=== PATIENT | female | born 1985 | race Caucasian/White ===

== ENCOUNTER 2017-03-05 07:51 | Observation (INO) | payer MEDICAID, OTHER ==
--- NOTE | 2017-03-05 08:47 | EDM.PDOC ---
ED HPI GI/ABDOMINAL - General Chief Complaint: Abdominal Pain Stated Complaint: R SIDE ABDOMINAL PAIN; 15 WKS PG Time Seen by Provider: 03/05/17 08:38 Source of Information: Reports: Patient History Limitations: Reports: No limitations - History of Present Illness INITIAL COMMENTS - FREE TEXT/NARRATIVE: 31-year-old female who is 4 para-3 presents to the ED with nausea and vomiting for 2-1/2 days. Last normal menstrual period was estimated to be around November 17. EDC has been set at August 25. This would make her about 15 weeks and 4 days . Development of right lower quadrant abdominal pain last night which has progressed in intensity and severity overnight. She is to walk extremely slowly any coughing or certain movements cause pain in the right lower quadrant. No vaginal bleeding. As he so far has been uneventful. She has had 3 previous sections. She's had gallbladder previously removed. Having 5-6 loose stools per day no blood. Emesis is bilious. No blood. Patient feels the right lower quadrant abdominal pain makes her vomit. Pain is constant with a colicky component. She does have a history of remote kidney stones. No genitourinary complaints other than frequency. Symptom Onset Date: 03/03/17 Timing/Duration: Reports: Day(s):, Gradual onset Location: RLQ Quality: Reports: ache, cramping, stabbing Severity: severe Improves with: Reports: other Context: Denies: sick contact, bad/questionable food, out of country travel, recent surgery, recent trauma (Nothing seems to make it better or worse.), lifting, activity/exercise, other Associated Symptoms (-Female): Reports: back pain, diarrhea, fever/chills ( Chills and fever), malaise, nausea/vomiting (Intractable with bilious emesis related to the right lower quadrant abdominal pain.). Denies: groin pain, shoulder pain, constipation (Right flank and low back discomfort radiating from the abdomen.), bloody stools (5-6 loose stools per day without blood.) Treatments RESIDENT PROGRAM SPECIALIST: Reports: Other (see below) (None.) - Related Data Allergies/ADRs: Allergies Allergy/AdvReac Type Severity Reaction Status Date / Time latex Allergy Rash Verified 03/05/17 08:01 tramadol AdvReac Seizure Verified 03/05/17 08:01 Home Meds: Home Meds levETIRAcetam [Keppra] 500 mg PO BID #60 tablet 09/15/15 [Rx] FLUoxetine [PROzac] 20 mg PO DAILY 09/03/16 [History] Cetirizine [ZyrTEC] 10 mg PO DAILY 03/05/17 [History] Past Medical History - Past Health History Medical/Surgical History: Denies Medical/Surgical History Cardiovascular History: Reports: Hypertension Other Cardiovascular History: Experiences PIH/Toxemia with each including highly elevated blood pressures, according to pt. 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 Was on Zoloft x 6 mos and the situation resolved with counseling and no longer having colic, which was causing pt to doubt herself a lot. Endocrine/Metabolic History: Reports: Obesity/BMI 30+ - Infectious Disease History Infectious Disease History: Reports: Human papilloma virus (HPV) - Past Surgical History HEENT Surgical History: Reports: Adenoidectomy, Tonsillectomy Other HEENT Surgeries/Procedures: adenoids GI Surgical History: Reports: Cholecystectomy Female Surgical History: Reports: section, LEEP Other Musculoskeletal Surgeries/Procedures:: Occasional numbness in L hand due, according to pt, to possible injury related to muscles/spinal nerve pinching. Social & Family History - Family History Family Medical History: Noncontributory Oncologic: Reports: Skin - Tobacco Use Smoking Status *Q: Former Smoker Years of Tobacco use: 3 Used Tobacco, but Quit: Yes Month Tobacco Last Used: March 2014 Second Hand Smoke Exposure: No - Caffeine Use Caffeine Use: Reports: Coffee - Alcohol Use Days Per Week of Alcohol Use: 2 Number of Drinks Per Day: 0 Total Drinks Per Week: 0 - Recreational Drug Use Recreational Drug Use: No - Living Situation & Occupation Living situation: Reports: single, with significant other (Fiance), with family (kids) Occupation: employed ([employer]) ED ROS GENERAL - Review of Systems Review Of Systems: See Below Constitutional: Reports: fever, chills, malaise, weakness, fatigue HEENT: Reports: No symptoms Respiratory: Reports: No Symptoms Cardiovascular: Reports: No symptoms Endocrine: Reports: no symptoms GI/Abdominal: Reports: Abdominal pain (See history of present illness), Diarrhea , Nausea, Vomiting. Denies: Bloody stool, Difficulty swallowing : Reports: frequency Musculoskeletal: Reports: back pain (Mild right back) Skin: Reports: no symptoms ( low back pain.) Neurological: Reports: Dizziness Psychiatric: Reports: No symptoms Hematologic/Lymphatic: Reports: no symptoms Immunologic: Reports: no symptoms ED EXAM, GI/ABD - Physical Exam Exam: See Below Exam Limited By: No limitations General Appearance: alert, WD/WN, moderate distress (In obvious discomfort.) Eyes: bilateral: normal appearance (No jaundice or pallor) Throat/Mouth: Other Head: atraumatic, normocephalic (Tongue remains moist.) Neck: normal inspection, supple, non-tender, full range of motion. No: lymphadenopathy (L), lymphadenopathy (R) Respiratory/Chest: no respiratory distress, lungs clear, normal breath sounds, no accessory muscle use, chest non-tender Cardiovascular: normal peripheral pulses, regular rate, rhythm, no edema, no gallop, no murmur GI/Abdominal: normal bowel sounds, tenderness (Tendernesses over McBurney's point with rebound), guarding, rebound ( and guarding evident.), McBurney's sign , other (Uterine fundus is barely palpable above the pubic symphysis.). No: rigidity, hepatomegaly, obturator sign, Rovsing's sign Back Exam: normal inspection, full range of motion. No: CVA tenderness (L), CVA tenderness (R) Extremities: normal inspection, normal range of motion, non-tender, no pedal edema, normal capillary refill Neurological: alert, oriented, CN II-XII intact, normal cognition, normal gait Psychiatric: normal affect Skin Exam: Warm, Dry, Intact, Normal color, No rash Course - Vital Signs Last Recorded V/S: Last Vital Signs Temp 36.8 C 03/05/17 07:58 Pulse 89 03/05/17 07:58 Resp 18 04/25/17 07:58 BP 139/91 H 03/05/17 07:58 Pulse Ox 97 03/05/17 07:58 - Orders/Labs/Meds Orders: Active Orders 24 hr Category Date Time Status Admission Status [Patient Status] [ADT] Routine ADT 03/05/17 13:21 Ordered Dextrose 5%-0.9% NaCl [Dextrose 5%-Normal Saline] 1,000 Med 03/05/17 09:00 Active ml IV ASDIRECTED Medication Orders Dextrose/Sodium Chloride (Dextrose 5%-Normal Saline) 1,000 mls @ 999 mls/hr IV ASDIRECTED KAILEE Last Admin: 03/05/17 08:58 Dose: 999 mls/hr Labs: Laboratory Tests 03/05/17 03/05/17 03/05/17 Range/Units 08:20 08:20 08:20 WBC 9.29 (3.98-10.04) K/mm3 RBC 4.56 (3.98-5.22) M/mm3 Hgb 13.5 (11.2-15.7) gm/L Hct 40.5 (34.1-44.9) % MCV 88.8 (79.4-94.8) fl MCH 29.6 (25.6-32.2) pg MCHC 33.3 (32.2-35.5) g/dl RDW Std Deviation 41.9 (36.4-46.3) fL Plt Count 239 (182-369) K/mm3 MPV 9.3 L (9.4-12.3) fl Neutrophils % (Manual) 83 H (40-60) % Band Neutrophils % 0 (0-10) % Lymphocytes % (Manual) 16 L (20-40) % Atypical Lymphs % 0 % Monocytes % (Manual) 0 L (2-10) % Eosinophils % (Manual) 0 L (0.7-5.8) % Basophils % (Manual) 1 (0.1-1.2) Platelet Estimate Adequate RBC Morph Comment Normal Sodium 137 (136-145) mEq/L Potassium 3.8 (3.5-5.1) mEq/L Chloride 104 (98-107) mEq/L Carbon Dioxide 20 L (21-32) mEq/L Anion Gap 16.8 H (5-15) BUN 8 (7-18) mg/dL Creatinine 0.7 (0.55-1.02) mg/dL Est Cr Clr Drug Dosing 92.10 mL/min Estimated GFR (MDRD) > 60 (>60) mL/min BUN/Creatinine Ratio 11.4 L (14-18) Glucose 92 (74-106) mg/dL Calcium 8.5 (8.5-10.1) mg/dL Total Bilirubin 0.3 (0.2-1.0) mg/dL AST 10 L (15-37) U/L ALT 14 (14-59) U/L Alkaline Phosphatase 60 (46-116) U/L C-Reactive Protein 1.6 H* (<1.0) mg/dL Total Protein 6.8 (6.4-8.2) g/dl Albumin 3.0 L (3.4-5.0) g/dl Globulin 3.8 gm/dL Albumin/Globulin Ratio 0.8 L (1-2) Lipase 165 (73-393) U/L Urine Color Yellow (Yellow) Urine Appearance Clear (Clear) Urine pH 6.5 (5.0-8.0) Ur Specific [place] 1.025 (1.005-1.030) Urine Protein Negative (Negative) Urine Glucose (UA) Negative (Negative) Urine Ketones Negative (Negative) Urine Occult Blood Negative (Negative) Urine Nitrite Negative (Negative) Urine Bilirubin Negative (Negative) Urine Urobilinogen 0.2 (0.2-1.0) Ur Leukocyte Esterase Negative (Negative) Urine RBC Not seen (0-5) /hpf Urine WBC Not seen (0-5) /hpf Ur Epithelial Cells Not seen (0-5) /hpf Urine Bacteria Not seen (FEW) /hpf Urine Mucus Not seen (FEW) /hpf Meds: Medications Generic Name Dose Route Start Last Admin Trade Name Freq PRN Reason Stop Dose Admin Dextrose/Sodium Chloride 1,000 mls @ 999 mls/hr 03/05/17 09:00 03/05/17 08:58 Dextrose 5%-Normal Saline IV 999 mls/hr ASDIRECTED KAILEE Administration Discontinued Medications Generic Name Dose Route Start Last Admin Trade Name Freq PRN Reason Stop Dose Admin Hydromorphone HCl 1 mg 03/05/17 08:49 03/05/17 09:00 Dilaudid IVPUSH 03/05/17 08:50 1 mg ONETIME ONE Administration Hydromorphone HCl 0.5 mg 03/05/17 12:13 03/05/17 12:19 Dilaudid IVPUSH 03/05/17 12:14 0.5 mg ONETIME ONE Administration Metoclopramide HCl 10 mg 03/05/17 08:49 03/05/17 08:59 Reglan IVPUSH 03/05/17 08:50 10 mg ONETIME ONE Administration - Radiology Interpretation Free Text/Narrative:: 31-year-old female presents the ED with reported nausea and vomiting x2 days. Developed right lower quadrant abdominal pain which is increased in intensity and severity over the last 12-14 hours. She believes the pain is what is making her vomit this morning. Emesis is bilious. She is also having loose stools 5 or 6 per day for the last 2 days and thought she just had the flu. Associated some fever and chills. She is clinically 15 weeks gestation. Pain is constant with a colicky component. She has a remote history of kidney stones. Plan OB ultrasound to be done as well as a look in the right lower quadrant for possible appendicitis. Labs to be done and urinalysis. IV will be D5 normal saline at open. Given Reglan 10 mg IV for nausea vomiting relief and Dilaudid 1 mg IV for pain relief. - Re-Assessments/Exams Free Text/Narrative Re-Assessment/Exam: 03/05/17 09:46 labs reveal a normal white count at 9.29 however there is a left shift of 83% neutrophils. Hemoglobin 13.5 hematocrit 40.5. Placed 139,000. Sodium 137 potassium 3.8. Anion gap mildly elevated at 16.8 CRP is 1.6 normal liver function and renal function . Urinalysis is normal. She is currently in the ultrasound suite. 03/05/17 12:11 abdominal ultrasound revealed the fetus estimated to be 15 weeks and 6 days. Single intrauterine fetus with normal amniotic fluid noted. Placenta is posterior with no findings of abruption. Images of the right lower quadrant did not show the appendix. No free fluid is identified in the pelvis. On reexamination she remains very tender in the right lower quadrant over McBurney's point. Particular area on deep palpation. No rebound tenderness appreciated. The abdominal wall is quite flaccid and is difficult to appreciate significant guarding certainly no rigidity. Pain had improved after initial treatment with narcotics and is now coming back. Spoke with Dr. Chang who is her normal SENIOR ORACLE DATABASE ADMINISTRATOR and he has asked that Gen. surgery on-call whom is Dr. Amrit Sneed see her in consultation to see what he thinks. Dr. Sneed is currently in surgery and will get back to us when he is out of the OR.Will repeat Dilaudid 0.5mg IV for pain relief. I'm not 100% convinced that she is an active appendicitis at this time. 03/05/17 13:23 computer was down for the last [address] Chang and Dr. Amrit Sneed had seen Ellen in consultation and decision has been made to take her to the operating room for a laparoscopic view of the appendix. She will therefore be admitted to the outpatient surgical unit. Departure - Departure Time of Disposition: 13:23 Disposition: DC/Tfer to Critical Access 66 Condition: fair Clinical Impression: Abdominal pain affecting Appendicitis Qualifiers: Appendicitis type: acute appendicitis Referrals: Patricia Monreal, [Primary Care Provider] - Forms: ED Department Discharge - My Orders Last 24 Hours: My Active Orders 03/05/17 09:00 Dextrose 5%-0.9% NaCl [Dextrose 5%-Normal Saline] 1,000 ml IV ASDIRECTED 03/05/17 13:21 Admission Status [Patient Status] [ADT] Routine - Assessment/Plan Last 24 Hours: My Active Orders 03/05/17 09:00 Dextrose 5%-0.9% NaCl [Dextrose 5%-Normal Saline] 1,000 ml IV ASDIRECTED 03/05/17 13:21 Admission Status [Patient Status] [ADT] Routine
[2017-03-05] MEDS ORDERED: HYDROmorphone 1 MG/ML Syringe IVPUSH ONE (08:49)
[2017-03-05] MEDS ORDERED: Metoclopramide 10 MG/2 ML SDV IVPUSH ONE (08:49)
[2017-03-05] MEDS ORDERED: Dextrose 5%-0.9% NaCl 1,000 ML IV SCH (09:00)
--- NOTE | 2017-03-05 11:16 | US ---
Limited obstetrical ultrasound: Multiple real-time images were obtained transabdominally. Images of the right lower quadrant were also obtained. Comparison: Previous obstetrical ultrasound of 01/08/17. Dates: LMP: LMP given as 11/14/16, WAYNE 08/21/17, gestational age 15 weeks 6 days Current ultrasound: WAYNE 08/22/17, gestational age 15 weeks 5 days Earlier ultrasound (01/08/17): WAYNE 08/26/17, gestational age 15 weeks 1 day Single intrauterine fetus is seen. Amniotic fluid volume is normal. Placenta is posterior with no findings of abruption. No findings of placenta previa are seen. Images of the right lower quadrant did not show the appendix. Maternal adnexa are unremarkable. Measurements: BPD: 3.18 cm - 16 weeks 0 days Head circumference: 11.49 cm - 15 weeks 4 days Abdominal circumference: 9.43 cm - 15 weeks 4 days Femur length: 1.95 cm - 15 weeks 6 days Estimated weight: 131 g (5 ounces), estimated weight at the 75th percentile for age by LMP Heart rate: 144 BPM Impression: 1. Single intrauterine fetus. Dates as noted above. 2. No complicating process seen by ultrasound at this time. 3. Images of the right lower quadrant did not show the appendix. Diagnostic code #1
[2017-03-05] MEDS ORDERED: HYDROmorphone 0.5 MG/0.5 ML Syringe IVPUSH ONE (12:13)
[2017-03-05] MEDS ORDERED: Sodium Chloride 0.9% 1,000 ML ONE (13:14)
[2017-03-05] MEDS ORDERED: Bupivacaine 0.5% 30 ML SDV ONE (13:15)
--- NOTE | 2017-03-05 13:36 | PCM.PREANE ---
Preanesthetic Assessment - Procedure Proposed Procedure: Laparscopic Appendectomy - Anesthesia/Transfusion/Family Hx Anesthesia History: Prior Anesthesia Without Reaction Family History of Anesthesia Reaction: No Transfusion History: No Prior Transfusion(s) Type of Transfusion Reactions: Reports: Unknown Intubation History: Unknown - Review of Systems General: Other (couging r/t allergies = environmental ) Pulmonary: No Symptoms Cardiovascular: No Symptoms Gastrointestinal: Decreased appetite, Nausea, Vomiting, Other (loose stools ) Neurological: Headache, Seizure Other: Reports: None - Physical Assessment NPO Status Date: 03/04/17 NPO Status Time: 20:00 Pulse: 81 O2 Sat by Pulse Oximetry: 97 Respiratory Rate: 18 Blood Pressure: 139/91 Temperature: 36.9 C Vital Signs: Last Vital Signs Temp 36.8 C 03/05/17 07:58 Pulse 89 03/05/17 07:58 Resp 18 03/05/17 07:58 BP 139/91 H 03/05/17 07:58 Pulse Ox 97 03/05/17 07:58 Height: 1.57 m Weight: 102.058 kg ASA Class: 3E Mental Status: Alert & Oriented x3 Airway Class: Mallampati = 1 Dentition: Reports: Normal Dentition Thyro-Mental Finger Breadths: 3 Mouth Opening Finger Breadths: 5 ROM/Head Extension: Full Lungs: Clear to auscultation, Normal respiratory effort Cardiovascular: Regular Rate, Regular Rhythm - Lab Values: Laboratory Last Values WBC 9.29 K/mm3 (3.98-10.04) 03/05/17 08:20 RBC 4.56 M/mm3 (3.98-5.22) 03/05/17 08:20 Hgb 13.5 gm/L (11.2-15.7) 03/05/17 08:20 Hct 40.5 % (34.1-44.9) 03/05/17 08:20 MCV 88.8 fl (79.4-94.8) 03/05/17 08:20 MCH 29.6 pg (25.6-32.2) 03/05/17 08:20 MCHC 33.3 g/dl (32.2-35.5) 03/05/17 08:20 RDW Std Deviation 41.9 fL (36.4-46.3) 03/05/17 08:20 Plt Count 239 K/mm3 (182-369) 03/05/17 08:20 MPV 9.3 fl (9.4-12.3) L 03/05/17 08:20 Neutrophils % (Manual) 83 % (40-60) H 03/05/17 08:20 Band Neutrophils % 0 % (0-10) 03/05/17 08:20 Lymphocytes % (Manual) 16 % (20-40) L 03/05/17 08:20 Atypical Lymphs % 0 % 03/05/17 08:20 Monocytes % (Manual) 0 % (2-10) L 03/05/17 08:20 Eosinophils % (Manual) 0 % (0.7-5.8) L 03/05/17 08:20 Basophils % (Manual) 1 (0.1-1.2) 03/05/17 08:20 Platelet Estimate Adequate 03/05/17 08:20 RBC Morph Comment Normal 03/05/17 08:20 Sodium 137 mEq/L (136-145) 03/05/17 08:20 Potassium 3.8 mEq/L (3.5-5.1) 03/05/17 08:20 Chloride 104 mEq/L (98-107) 03/05/17 08:20 Carbon Dioxide 20 mEq/L (21-32) L 03/05/17 08:20 Anion Gap 16.8 (5-15) H 03/05/17 08:20 BUN 8 mg/dL (7-18) 03/05/17 08:20 Creatinine 0.7 mg/dL (0.55-1.02) 03/05/17 08:20 Est Cr Clr Drug Dosing 92.10 mL/min 03/05/17 08:20 Estimated GFR (MDRD) > 60 mL/min (>60) 03/05/17 08:20 BUN/Creatinine Ratio 11.4 (14-18) L 03/05/17 08:20 Glucose 92 mg/dL (74-106) 03/05/17 08:20 Calcium 8.5 mg/dL (8.5-10.1) 03/05/17 08:20 Total Bilirubin 0.3 mg/dL (0.2-1.0) 03/05/17 08:20 AST 10 U/L (15-37) L 03/05/17 08:20 ALT 14 U/L (14-59) 03/05/17 08:20 Alkaline Phosphatase 60 U/L (46-116) 03/05/17 08:20 C-Reactive Protein 1.6 mg/dL (<1.0) H* 03/05/17 08:20 Total Protein 6.8 g/dl (6.4-8.2) 03/05/17 08:20 Albumin 3.0 g/dl (3.4-5.0) L 03/05/17 08:20 Globulin 3.8 gm/dL 03/05/17 08:20 Albumin/Globulin Ratio 0.8 (1-2) L 03/05/17 08:20 Lipase 165 U/L (73-393) 03/05/17 08:20 Urine Color Yellow (Yellow) 03/05/17 08:20 Urine Appearance Clear (Clear) 03/05/17 08:20 Urine pH 6.5 (5.0-8.0) 03/05/17 08:20 Ur Specific [place] 1.025 (1.005-1.030) 03/05/17 08:20 Urine Protein Negative (Negative) 03/05/17 08:20 Urine Glucose (UA) Negative (Negative) 03/05/17 08:20 Urine Ketones Negative (Negative) 03/05/17 08:20 Urine Occult Blood Negative (Negative) 03/05/17 08:20 Urine Nitrite Negative (Negative) 03/05/17 08:20 Urine Bilirubin Negative (Negative) 03/05/17 08:20 Urine Urobilinogen 0.2 (0.2-1.0) 03/05/17 08:20 Ur Leukocyte Esterase Negative (Negative) 03/05/17 08:20 Urine RBC Not seen /hpf (0-5) 03/05/17 08:20 Urine WBC Not seen /hpf (0-5) 03/05/17 08:20 Ur Epithelial Cells Not seen /hpf (0-5) 03/05/17 08:20 Urine Bacteria Not seen /hpf (FEW) 03/05/17 08:20 Urine Mucus Not seen /hpf (FEW) 03/05/17 08:20 - Allergies Allergies/Adverse Reactions: Allergies Allergy/AdvReac Type Severity Reaction Status Date / Time latex Allergy Rash Verified 03/05/17 08:01 tramadol AdvReac Seizure Verified 03/05/17 08:01 - Blood Blood Available: No - Anesthesia Plan Pre-Op Medication Ordered: Antacids (bicitra ) - Acknowledgements Anesthesia Type Planned: General Anesthesia Pt an Appropriate Candidate for the Planned Anesthesia: Yes Alternatives and Risks of Anesthesia Discussed w Pt/Guardian: Yes Pt/Guardian Understands and Agrees with Anesthesia Plan: Yes PreAnesthesia Questionnaire - Past Health History Medical/Surgical History: Denies Medical/Surgical History Cardiovascular History: Reports: Hypertension Other Cardiovascular History: Experiences PIH/Toxemia with each including highly elevated blood pressures, according to pt. Respiratory History: Reports: None, Other (see below) (seasonal allergy cough) Genitourinary History: Reports: Renal calculus LPN PER DIEM History: Reports: Other (see below) : 5 Para: 3 LMP (Approximate): (15 weks currently, counseled on risks and benefits of anesthesia during ) Other OB/BYN History: LEEP procedure; culposcopy; HPV removal of lesions, ovarian cysts Musculoskeletal History: Reports: Other (see below) Other Musculoskeletal History: foot and heel pain, muscle spasms, R plantar fascitis Neurological History: Reports: Headaches, chronic, Seizure Psychiatric History: Reports: Depression Other Psychiatric History: Pt states had pp depression following the of her second child. Was on Zoloft x 6 mos and the situation resolved with counseling and infant no longer having colic, which was causing pt to doubt herself a lot. Endocrine/Metabolic History: Reports: Obesity/BMI 30+ - Infectious Disease History Infectious Disease History: Reports: Human papilloma virus (HPV) - Past Surgical History HEENT Surgical History: Reports: Adenoidectomy, Tonsillectomy Other HEENT Surgeries/Procedures: adenoids GI Surgical History: Reports: Cholecystectomy Female Surgical History: Reports: section, LEEP Other Musculoskeletal Surgeries/Procedures:: Occasional numbness in L hand due, according to pt, to possible injury related to muscles/spinal nerve pinching. - SUBSTANCE USE Smoking Status *Q: Former Smoker Tobacco Use Within Last Twelve Months: Cigarettes Second Hand Smoke Exposure: No Days Per Week of Alcohol Use: 2 Number of Drinks Per Day: 0 Total Drinks Per Week: 0 Recreational Drug Use History: No - HOME MEDS Home Medications: Home Meds levETIRAcetam [Keppra] 500 mg PO BID #60 tablet 09/15/15 [Rx] FLUoxetine [PROzac] 20 mg PO DAILY 09/03/16 [History] Cetirizine [ZyrTEC] 10 mg PO DAILY 03/05/17 [History] - CURRENT (IN HOUSE) MEDS Current Meds: Current Medications Dextrose/Sodium Chloride (Dextrose 5%-Normal Saline) 1,000 mls @ 999 mls/hr IV ASDIRECTED KAILEE Last Admin: 03/05/17 08:58 Dose: 999 mls/hr Discontinued Medications Bupivacaine HCl (Marcaine 0.5%) Confirm Administered Dose 30 ml .ROUTE .STK-MED ONE Stop: 03/05/17 13:16 Hydromorphone HCl (Dilaudid) 1 mg IVPUSH ONETIME ONE Stop: 03/05/17 08:50 Last Admin: 03/05/17 09:00 Dose: 1 mg Hydromorphone HCl (Dilaudid) 0.5 mg IVPUSH ONETIME ONE Stop: 03/05/17 12:14 Last Admin: 03/05/17 12:19 Dose: 0.5 mg Metoclopramide HCl (Reglan) 10 mg IVPUSH ONETIME ONE Stop: 03/05/17 08:50 Last Admin: 03/05/17 08:59 Dose: 10 mg
[2017-03-05] MEDS ORDERED: Citric Acid/Sodium Citrate Solution 30 ML Cup PO STA (13:51)
[2017-03-05] MEDS ORDERED: Midazolam 1 MG/ML 2 ML SDV ONE (14:00)
[2017-03-05] MEDS ORDERED: Propofol 200 MG/20 ML SDV ONE ×2 (14:00→14:34)
[2017-03-05] MEDS ORDERED: fentaNYL 100 MCG/2 ML SDV ONE (14:01)
--- NOTE | 2017-03-05 14:10 | HP ---
DATE OF ADMISSION: 03/05/2017 HISTORY OF PRESENT ILLNESS: This is a 31-year-old 5 para 3 who has right lower quadrant pain that began on Saturday. It has been associated with nausea and vomiting. The pain increased in intensity and she came into the emergency room. Ultrasound showed a 15 week which was uncomplicated. She was not having any bleeding. No UTIs or dysuria. PAST MEDICAL HISTORY: Good health. CURRENT MEDICATIONS: Per medication reconciliation form. FAMILY HISTORY: Negative. SOCIAL HISTORY: No smoking. No drinking. No use of street drugs. ALLERGIES: None known. REVIEW OF SYSTEMS: No chest pain, shortness of breath, cough, hoarseness, wheezing, fainting, weakness, numbness, or convulsions. Does have some nausea and vomiting. PHYSICAL EXAMINATION: GENERAL: Reveals a slightly obese female. HEENT: Eyes; sclerae white. Extraocular muscle motion normal. Oral cavity, healthy mucous membrane with mouth and tongue. NECK: Supple. No nodes. No thyromegaly. Trachea midline. LUNGS: Clear. No rales, rhonchi, fremitus, or dullness. HEART: Tones regular rate. No S3, S4, jugular venous distention, or murmurs. ABDOMEN: Shows tenderness in the right lower quadrant. No guarding or rebound. No inguinal or umbilical hernias. EXTREMITIES: Upper extremities, no angulation deformities. NEUROLOGIC: No sensorineural deficit. Cranial nerves 3 through 12 intact. SKIN: Warm and dry. PSYCHIATRIC: Normal affect. LABORATORY DATA: Shows a white count of 9.2, hemoglobin is 13.5, and platelet count is normal. Electrolytes of CO2 is a little bit low at 20 and lipase 160. Urinalysis is negative. ASSESSMENT: Pain in the right lower quadrant with 15 weeks of . PLAN: Plan is to proceed with a laparoscopic appendectomy. Discussed this with the patient the risks and complications including the risk of loss of child. Understands and consents and will proceed immediately. MMMONTSERRAT /[id number]
[2017-03-05] MEDS ORDERED: HYDROmorphone 1 MG/ML Syringe ONE ×3 (14:26→15:34)
[2017-03-05] MEDS ORDERED: ceFAZolin 1 GM Vial ONE (14:27)
[2017-03-05] MEDS ORDERED: Phenylephrine/Normal Saline 100 MCG/ML 10 ML Syringe ONE (14:32)
--- NOTE | 2017-03-05 15:05 | PCM.OPNOTE ---
- General Post-Op/Procedure Note Date of Surgery/Procedure: 03/05/17 Operative Procedure(s): lap appy Pre Op Diagnosis: RLQ pain Post-Op Diagnosis: Same Anesthesia Technique: General ET tube Primary Surgeon: Alexander Sneed EBL in mLs: 0 Complications: None Condition: Good
[2017-03-05] MEDS ORDERED: Ondansetron 4 MG/2 ML SDV IVPUSH PRN ×2 (15:08→15:31)
[2017-03-05] MEDS ORDERED: Neostigmine Methylsulfate 1 MG/ML 5 ML Syringe ONE (15:09)
[2017-03-05] MEDS ORDERED: Ondansetron 4 MG/2 ML SDV ONE (15:09)
[2017-03-05] MEDS ORDERED: Metoclopramide 10 MG/2 ML SDV IVPUSH PRN (15:13)
[2017-03-05] MEDS ORDERED: Meperidine PF 50 MG/ML Syringe IVPUSH PRN (15:31)
[2017-03-05] MEDS ORDERED: fentaNYL 100 MCG/2 ML SDV IVPUSH PRN (15:31)
[2017-03-05] MEDS ORDERED: HYDROmorphone 0.5 MG/0.5 ML Syringe IVPUSH PRN (15:31)
[2017-03-05] MEDS ORDERED: diphenhydrAMINE 50 MG/ML SDV IVPUSH PRN (15:31)
--- NOTE | 2017-03-05 15:31 | PCM.POSTAN ---
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
[2017-03-05] MEDS ORDERED: Ketamine 500 mg/10 ML MDV ONE (15:34)
[2017-03-05] MEDS: HYDROmorphone 0.5 MG/0.5 ML Syringe IVPUSH PRN ×2 (17:43→22:19)
[2017-03-05] MEDS: Acetaminophen/HYDROcodone 325-10 MG Tab PO PRN (20:30)
[2017-03-05] MEDS: levETIRAcetam 500 MG Tab PO SCH (21:05)
[2017-03-06] MEDS: HYDROmorphone 0.5 MG/0.5 ML Syringe IVPUSH PRN (01:57)
[2017-03-06] MEDS: Acetaminophen/HYDROcodone 325-10 MG Tab PO PRN (04:38)
--- NOTE | 2017-03-06 07:28 | PCM48HPAN ---
Post Anesthesia Note - EVALUATION WITHIN 48HRS OF ANESTHETIC Vital Signs in Normal Range: Yes Patient Participated in Evaluation: Yes Respiratory Function Stable: Yes Airway Patent: Yes Cardiovascular Function Stable: Yes Hydration Status Stable: Yes Pain Control Satisfactory: Yes (states she is just a little sore) Nausea and Vomiting Control Satisfactory: Yes Mental Status Recovered: Yes
--- NOTE | 2017-03-06 08:54 | OR ---
DATE OF OPERATION: 03/04/2017 SURGEON: Alexander Sneed MD PREOPERATIVE DIAGNOSIS: Right lower quadrant pain. POSTOPERATIVE DIAGNOSIS: Right lower quadrant pain. OPERATION PERFORMED: Laparoscopic appendectomy. ANESTHESIA: Procedure done under general anesthetic. ESTIMATED BLOOD LOSS: 0 mL. FINDINGS: Normal-appearing appendix and ileum for the first 2 feet did not show any pathology. The patient had a gravid uterus of 15 weeks. Ovary and tubes were unremarkable. There was omentum adherent to the previous . DESCRIPTION OF PROCEDURE: The patient was taken to the operating room, placed in a supine position, connected to monitoring equipment, given a general anesthetic, antibiotics were given, and SCDs were placed. The abdomen was prepped with DuraPrep and draped off in a sterile fashion. Incision was made above the umbilicus and carried down by sharp dissection to the fascia. This was opened and abdominal cavity entered. Eula trocar placed and secured with stay sutures. Pneumoperitoneum established. A 5-mm 30-degree camera was inserted and abdominal cavity scanned showing the appendix in the right upper quadrant. The patient was placed in reverse Trendelenburg with leftward tilt. A window in the mesoappendix was made. This was facilitated by putting a 5-mm port in the right upper quadrant and right lower quadrant. Endo ligator was placed into the abdomen and appendix was from its attachments to the cecum and another 2 firings of the Endo ligator the mesoappendix. This was placed in the endobag and removed from the abdominal cavity. Camera and pneumoperitoneum were re- established showing excellent hemostasis. No other pathology. Pneumoperitoneum was removed along with the ports. The fascia of the subumbilical port was closed with a running 0 Vicryl suture. The skin of each port closed with subdermal 4-0 Dexon suture and each port was anesthetized with 0.5% Marcaine. Steri-Strips and sterile dressing placed. The patient tolerated the procedure and sent to recovery room in a stable condition. Because of her , she will be observed overnight. MMODAL /[id number]
[2017-03-06] MEDS ORDERED: FLUoxetine 20 MG Cap PO SCH ×2 (09:00→21:00)
[2017-03-06] MEDS ORDERED: Acetaminophen/HYDROcodone 325-10 MG Tab PO PRN (09:17)
[2017-03-06] MEDS: levETIRAcetam 500 MG Tab PO SCH (09:35)
[2017-03-06 09:53] VITALS: BP 116/65
--- NOTE | 2017-03-06 12:15 | PCM.SURGPN ---
- General Info Date of Service: 03/06/17 - Patient Data Vitals - most recent: Last Vital Signs Temp 98.1 F 03/06/17 09:30 Pulse 64 03/06/17 09:38 Resp 15 03/06/17 09:30 BP 116/65 03/06/17 09:38 Pulse Ox 94 L 03/06/17 09:38 Weight - most recent: 102.058 kg I&O - last 24 hours: Intake & Output 03/05/17 03/06/17 03/06/17 23:59 07:59 15:59 Intake Total 220 Balance 220 Med Orders - Current: Current Medications Hydrocodone Bitart/Acetaminophen ([place] 325-10 Mg) 1 tab PO Q4H PRN PRN Reason: Pain Last Admin: 03/06/17 09:35 Dose: 1 tab Fluoxetine HCl (Prozac) 20 mg PO DAILY [facility] Hydromorphone HCl (Dilaudid) 0.5 mg IVPUSH Q2H PRN PRN Reason: Pain Last Admin: 03/06/17 01:57 Dose: 0.5 mg Dextrose/Sodium Chloride (Dextrose 5%-Normal Saline) 1,000 mls @ 999 mls/hr IV ASDIRECTED KAILEE Last Admin: 03/05/17 08:58 Dose: 999 mls/hr Levetiracetam (Keppra) 500 mg PO BID [facility] Last Admin: 03/06/17 09:35 Dose: 500 mg Meperidine HCl (Demerol) 12.5 mg IVPUSH ONETIME PRN PRN Reason: shivering Stop: 03/06/17 15:32 Metoclopramide HCl (Reglan) 10 mg IVPUSH Q6H PRN PRN Reason: Nausea Discontinued Medications Hydrocodone Bitart/Acetaminophen ([place] 325-10 Mg) 1 tab PO Q6H PRN PRN Reason: Pain Last Admin: 03/06/17 04:38 Dose: 1 tab Bupivacaine HCl (Marcaine 0.5%) Confirm Administered Dose 30 ml .ROUTE .STK-MED ONE Stop: 03/05/17 13:16 Last Admin: 03/05/17 14:23 Dose: 9 ml Cefazolin Sodium (Ancef) Confirm Administered Dose 2 gm .ROUTE .STK-MED ONE Stop: 03/05/17 14:28 Citric Acid/Sodium Citrate (Bicitra Solution) 30 ml PO ONETIME STA Stop: 03/05/17 13:52 Last Admin: 03/05/17 13:59 Dose: 30 ml Diphenhydramine HCl (Benadryl) 25 mg IVPUSH Q6H PRN PRN Reason: pruritis Stop: 03/05/17 18:00 Fentanyl (Sublimaze) Confirm Administered Dose 100 mcg .ROUTE .STK-MED ONE Stop: 03/05/17 14:02 Fentanyl (Sublimaze) 50 mcg IVPUSH Q5M PRN PRN Reason: Pain Stop: 03/05/17 18:00 Last Admin: 03/05/17 15:46 Dose: 50 mcg Glycopyrrolate () Confirm Administered Dose 1 mg .ROUTE .STK-MED ONE Stop: 03/05/17 15:10 Hydromorphone HCl (Dilaudid) 1 mg IVPUSH ONETIME ONE Stop: 03/05/17 08:50 Last Admin: 03/05/17 09:00 Dose: 1 mg Hydromorphone HCl (Dilaudid) 0.5 mg IVPUSH ONETIME ONE Stop: 03/05/17 12:14 Last Admin: 03/05/17 12:19 Dose: 0.5 mg Hydromorphone HCl (Dilaudid) Confirm Administered Dose 1 mg .ROUTE .STK-MED ONE Stop: 03/05/17 14:27 Hydromorphone HCl (Dilaudid) Confirm Administered Dose 1 mg .ROUTE .STK-MED ONE Stop: 03/05/17 15:21 Hydromorphone HCl (Dilaudid) Confirm Administered Dose 1 mg .ROUTE .STK-MED ONE Stop: 03/05/17 15:35 Hydromorphone HCl (Dilaudid) 0.5 mg IVPUSH Q15M PRN PRN Reason: severe pain Stop: 03/05/17 15:47 Last Admin: 03/05/17 15:47 Dose: 0.5 mg Ketamine HCl (Ketalar) Confirm Administered Dose 500 mg .ROUTE .STK-MED ONE Stop: 03/05/17 15:35 Metoclopramide HCl (Reglan) 10 mg IVPUSH ONETIME ONE Stop: 03/05/17 08:50 Last Admin: 03/05/17 08:59 Dose: 10 mg Midazolam HCl (Versed 1 Mg/Ml) Confirm Administered Dose 2 mg .ROUTE .STK-MED ONE Stop: 03/05/17 14:01 Neostigmine Methylsulfate (Neostigmine) Confirm Administered Dose 5 mg .ROUTE .STK-MED ONE Stop: 03/05/17 15:10 Ondansetron HCl (Zofran) Confirm Administered Dose 4 mg .ROUTE .STK-MED ONE Stop: 03/05/17 15:10 Ondansetron HCl (Zofran) 4 mg IVPUSH Q8H PRN PRN Reason: Nausea Ondansetron HCl (Zofran) 4 mg IVPUSH ONETIME PRN PRN Reason: Nausea/Vomiting Stop: 03/05/17 18:00 Phenylephrine HCl (Phenylephrine In Ns 100 Mcg/Ml) Confirm Administered Dose 1 mg .ROUTE .STK-MED ONE Stop: 03/05/17 14:33 Propofol (Diprivan 20 Ml) Confirm Administered Dose 200 mg .ROUTE .STK-MED ONE Stop: 03/05/17 14:01 Propofol (Diprivan 20 Ml) Confirm Administered Dose 200 mg .ROUTE .STK-MED ONE Stop: 03/05/17 14:35 - Problem List Review Problem List Initiated/Reviewed/Updated: Yes - My Orders Last 24 Hours: Active Orders 24 hr Category Date Time Status Ambulate [RC] PER UNIT ROUTINE Care 03/05/17 15:06 Active Notify Provider [RC] ASDIRECTED Care 03/05/17 15:31 Active Regular Diet [DIET] Diet 03/06/17 Lunch Active Acetaminophen/HYDROcodone [[place] 325-10 MG] Med 03/06/17 09:17 Active 1 tab PO Q4H PRN FLUoxetine [PROzac] Med 03/06/17 09:00 Active 20 mg PO DAILY HYDROmorphone [Dilaudid] Med 03/05/17 15:07 Active 0.5 mg IVPUSH Q2H PRN Meperidine [Demerol] Med 03/05/17 15:31 Active 12.5 mg IVPUSH ONETIME PRN Metoclopramide [Reglan] Med 03/05/17 15:13 Active 10 mg IVPUSH Q6H PRN levETIRAcetam [Keppra] Med 03/05/17 21:00 Active 500 mg PO BID Medication Orders Hydrocodone Bitart/Acetaminophen ([place] 325-10 Mg) 1 tab PO Q4H PRN PRN Reason: Pain Last Admin: 03/06/17 09:35 Dose: 1 tab Fluoxetine HCl (Prozac) 20 mg PO DAILY [facility] Hydromorphone HCl (Dilaudid) 0.5 mg IVPUSH Q2H PRN PRN Reason: Pain Last Admin: 03/06/17 01:57 Dose: 0.5 mg Admin: 03/05/17 22:19 Dose: 0.5 mg Admin: 03/05/17 17:43 Dose: 0.5 mg Dextrose/Sodium Chloride (Dextrose 5%-Normal Saline) 1,000 mls @ 999 mls/hr IV ASDIRECTED KAILEE Last Admin: 03/05/17 08:58 Dose: 999 mls/hr Levetiracetam (Keppra) 500 mg PO BID [facility] Last Admin: 03/06/17 09:35 Dose: 500 mg Admin: 03/05/17 21:05 Dose: 500 mg Meperidine HCl (Demerol) 12.5 mg IVPUSH ONETIME PRN PRN Reason: shivering Stop: 03/06/17 15:32 Metoclopramide HCl (Reglan) 10 mg IVPUSH Q6H PRN PRN Reason: Nausea - Plan Plan (Free Text/Narrative):: discharge dictated FLAVIA
--- NOTE | 2017-03-06 13:54 | DISCH ---
ADMISSION DATE: 03/05/2017 DISCHARGE DATE: 03/06/2017 HISTORY: This is a 31-year-old who came in through the emergency room with pain in the right lower quadrant that began on Saturday. It persisted and was associated with poor appetite. She was seen in the emergency room. Ultrasound showed a 15-week . She was not having any bleeding or UTI. Director Of Individual Giving evaluated her and asked for a surgical consultation. PHYSICAL EXAMINATION: GENERAL: At the time of admission revealed an alert and cooperative female, slightly obese. EYES, EARS, NOSE, AND THROAT: Unremarkable. NECK: Supple. LUNGS: Clear. HEART: Tones regular rate. ABDOMEN: Showed tenderness in the right lower quadrant. HOSPITAL COURSE: The patient was judged to have a risk for appendicitis because of 15-week and pain in the right lower quadrant. She was brought to the operating room, where laparoscopic appendectomy was performed. The appendix appeared normal. The patient's postoperative course was uneventful, and she did have some incisional tenderness, which was resolved with pain medication. The pain in the right lower quadrant disappeared. She felt improved, and she was discharged on a regular diet, follow up with OB appointment, and discharge condition improved. FINAL DIAGNOSIS: Right lower quadrant pain status post laparoscopic appendectomy. Pathology pending. ACTIVITY: No heavy lifting, pushing, shoving, or pulling. DIET: Regular diet. DISCHARGE MEDICATIONS: As before and previous medication reconciliation form. In addition to that, Vicodin 5/325 one p.o. q.i.d. p.r.n. pain. FOLLOW-UP: With me in 1 week. CONDITION ON DISCHARGE: Improved. MMODAL /[id number]
[2017-03-07] MEDS ORDERED: Loratadine 10 MG Tab PO SCH (09:00)
== END 2017-03-06 12:30 | disposition home or self-care (01) ==
LOC: JD.ED 07:51 → JD.SDS 13:22 → JD.OB 13:22 → JD.SDS 15:04 → JD.OB 15:05 → UNDOADMOB 15:05
PROVIDERS: ADMIT Surgery; ATTEND Surgery
DX: O21.9 Vomiting of pregnancy, unspecified (principal); Z3A.15 15 weeks gestation of pregnancy; R10.31 Right lower quadrant pain
CPT/HCPCS: 36415; 44970; 76815; 80053; 81001; 83690; 85025; 86140; 88304; 96361; 96374; 96375; 96376; 99285; A9270; G0378; J0690; J1170; J2405; J2710; J2765; J3010; J7042; 00840; J2250; J2704

== ENCOUNTER 2017-03-23 13:36 | Emergency (ER) | payer OTHER ==
[2017-03-23 13:54] VITALS: BP 126/95
--- NOTE | 2017-03-23 14:15 | EDM.PDOC ---
ED HPI GENERAL MEDICAL PROBLEM - General Chief Complaint: WASHERY BOSS Problem Stated Complaint: 18 WEEKS PREG/ VOMITING Time Seen by Provider: 03/23/17 14:04 Source of Information: Reports: Patient, RN Notes Reviewed - History of Present Illness INITIAL COMMENTS - FREE TEXT/NARRATIVE: 31-year-old female comes in with nausea vomiting and diarrhea. She is about 18 weeks . has been going okay for her. He has no abdominal pain , pelvic pain bleeding or spotting. She states her symptoms of vomiting and diarrhea did start at about the same time yesterday. She continues to have nausea, vomiting if she tries to eat. She continues to have frequent watery diarrhea. Her mouth is starting to fill dry. She feels mildly dizzy when standing. No chest or shoulder discomfort. No difficulty breathing. - Related Data Allergies Allergy/AdvReac Type Severity Reaction Status Date / Time latex Allergy Rash Verified 03/23/17 13:50 tramadol AdvReac Seizure Verified 03/23/17 13:50 Home Meds: Home Meds levETIRAcetam [Keppra] 500 mg PO BID #60 tablet 09/15/15 [Rx] Cetirizine [ZyrTEC] 10 mg PO DAILY 03/05/17 [History] FLUoxetine HCl [Fluoxetine HCl] 40 mg PO BEDTIME 03/05/17 [History] Past Medical History - Past Health History Medical/Surgical History: Denies Medical/Surgical History Cardiovascular History: Reports: Hypertension Other Cardiovascular History: Experiences PIH/Toxemia with each including highly elevated blood pressures, according to pt. Respiratory History: Reports: None Genitourinary History: Reports: Renal Calculus WASHERY BOSS History: Reports: , Other (See Below) Other OB/BYN History: LEEP procedure; culposcopy; HPV removal of lesions, ovarian cysts Musculoskeletal History: Reports: Other (See Below) Other Musculoskeletal History: foot and heel pain, muscle spasms, R plantar fascitis Neurological History: Reports: Headaches, Chronic, Seizure Psychiatric History: Reports: Depression Other Psychiatric History: Pt states had pp depression following the of her second child. Was on Zoloft x 6 mos and the situation resolved with counseling and no longer having colic, which was causing pt to doubt herself a lot. Endocrine/Metabolic History: Reports: Obesity/BMI 30+ - Infectious Disease History Infectious Disease History: Reports: Human Papilloma Virus (HPV) - Past Surgical History HEENT Surgical History: Reports: Adenoidectomy, Tonsillectomy Other HEENT Surgeries/Procedures: adenoids GI Surgical History: Reports: Cholecystectomy Female Surgical History: Reports: Section, LEEP Social & Family History - Family History Family Medical History: Noncontributory Oncologic: Reports: Skin - Tobacco Use Smoking Status *Q: Never Smoker Years of Tobacco use: 10 Used Tobacco, but Quit: Yes Month Tobacco Last Used: 3 years ago Second Hand Smoke Exposure: No - Caffeine Use Caffeine Use: Reports: None - Alcohol Use Days Per Week of Alcohol Use: 2 Number of Drinks Per Day: 0 Total Drinks Per Week: 0 - Recreational Drug Use Recreational Drug Use: No - Living Situation & Occupation Living situation: Reports: Single, with Significant Other, with Family Occupation: Employed ED ROS GENERAL - Review of Systems Review Of Systems: See Below Constitutional: Denies: Fever, Chills, Diaphoresis HEENT: Denies: Throat Pain Respiratory: Denies: Shortness of Breath Cardiovascular: Denies: Chest Pain GI/Abdominal: Reports: Diarrhea, Nausea, Vomiting. Denies: Abdominal Pain Musculoskeletal: Reports: No Symptoms Neurological: Reports: Dizziness (Mild when standing). Denies: Trouble Speaking , Difficulty Walking, Weakness ED EXAM, GI/ABD - Physical Exam Exam: See Below General Appearance: Alert, No Apparent Distress Throat/Mouth: Normal Inspection, Other (Oral mucosa mildly dry) Head: Atraumatic Neck: Supple, Full Range of Motion Respiratory/Chest: No Respiratory Distress, Lungs Clear, Normal Breath Sounds Cardiovascular: Regular Rate, Rhythm GI/Abdominal: Soft, Non-Tender. No: Guarding Back Exam: No: CVA Tenderness (L), CVA Tenderness (R) Extremities: No: Pedal Edema, Leg Pain Neurological: Alert, Oriented, No Motor/Sensory Deficits Skin Exam: Warm, Dry, Normal Color Course - Vital Signs Last Recorded V/S: Last Vital Signs Temp 97.0 F 03/23/17 13:51 Pulse 100 03/23/17 13:51 Resp 16 03/23/17 13:51 BP 126/95 H 03/23/17 13:51 Pulse Ox 97 03/23/17 13:51 Orthostatic Blood Pressure [ 126/95 Standing] Orthostatic Blood Pressure [ 142/80 Supine] - Orders/Labs/Meds Orders: Active Orders 24 hr Category Date Time Status Peripheral IV Care [RC] . DIRECTED Care 03/23/17 14:16 Active Sodium Chloride 0.9% [Normal Saline] 1,000 ml Med 03/23/17 14:30 Active IV ONETIME Sodium Chloride 0.9% [Saline Flush] Med 03/23/17 14:16 Active 10 ml FLUSH ASDIRECTED PRN Peripheral IV Insertion Adult [OM.PC] Stat Oth 03/23/17 14:16 Ordered Medication Orders Sodium Chloride (Normal Saline) 1,000 mls @ 999 mls/hr IV ONETIME KAILEE Last Admin: 03/23/17 14:33 Dose: 999 mls/hr Sodium Chloride (Saline Flush) 10 ml FLUSH ASDIRECTED PRN PRN Reason: Keep Vein Open Last Admin: 03/23/17 14:38 Dose: 10 ml Meds: Medications Generic Name Dose Route Start Last Admin Trade Name Freq PRN Reason Stop Dose Admin Sodium Chloride 1,000 mls @ 999 mls/hr 03/23/17 14:30 03/23/17 14:33 Normal Saline IV 999 mls/hr ONETIME KAILEE Administration Sodium Chloride 10 ml 03/23/17 14:16 03/23/17 14:38 Saline Flush FLUSH 10 ml ASDIRECTED PRN Administration Keep Vein Open Discontinued Medications Generic Name Dose Route Start Last Admin Trade Name Freq PRN Reason Stop Dose Admin Ondansetron HCl 4 mg 03/23/17 14:16 03/23/17 14:34 Zofran IVPUSH 03/23/17 14:17 4 mg ONETIME ONE Administration - Re-Assessments/Exams Free Text/Narrative Re-Assessment/Exam: 03/23/17 15:38 Doing somewhat better after 1 L IV fluid, Zofran 4 mg IV. Discharge instructions as documented Departure - Departure Time of Disposition: 15:38 Disposition: Home, Self-Care 01 Condition: fair Clinical Impression: Second trimester Vomiting Qualifiers: Vomiting type: unspecified Vomiting Intractability: non-intractable Nausea presence: with nausea Qualified Code(s): R11.2 - Nausea with vomiting, unspecified Diarrhea Qualifiers: Diarrhea type: unspecified type Qualified Code(s): R19.7 - Diarrhea, unspecified - Discharge Information Forms: ED Department Discharge Additional Instructions: Clear liquids only until this evening, then very careful bland diet slowly as tolerated, probiotic to 3 times daily until diarrhea has completely resolved, followup clinic as needed if symptoms not resolving as expected, return to ED as needed, especially if symptoms worsening in any way - My Orders Last 24 Hours: My Active Orders 03/23/17 14:16 Peripheral IV Care [RC] . DIRECTED Sodium Chloride 0.9% [Saline Flush] 10 ml FLUSH ASDIRECTED PRN Peripheral IV Insertion Adult [OM.PC] Stat 03/23/17 14:30 Sodium Chloride 0.9% [Normal Saline] 1,000 ml IV ONETIME - Assessment/Plan Last 24 Hours: My Active Orders 03/23/17 14:16 Peripheral IV Care [RC] . DIRECTED Sodium Chloride 0.9% [Saline Flush] 10 ml FLUSH ASDIRECTED PRN Peripheral IV Insertion Adult [OM.PC] Stat 03/23/17 14:30 Sodium Chloride 0.9% [Normal Saline] 1,000 ml IV ONETIME
[2017-03-23] MEDS ORDERED: Ondansetron 4 MG/2 ML SDV IVPUSH ONE (14:16)
[2017-03-23] MEDS ORDERED: Sodium Chloride 0.9% 10 ML Syringe FLUSH PRN (14:16)
[2017-03-23] MEDS ORDERED: Sodium Chloride 0.9% 1,000 ML IV SCH (14:30)
== END 2017-03-23 15:51 | disposition home or self-care (01) ==
LOC: JD.ED 13:36
DX: O21.9 Vomiting of pregnancy, unspecified (principal); R19.7 Diarrhea, unspecified; I10 Essential (primary) hypertension; E66.9 Obesity, unspecified; F32.9 Major depressive disorder, single episode, unspecified; Z88.5 Allergy status to narcotic agent; Z88.8 Allergy status to other drugs, medicaments and biological substances; Z79.899 Other long term (current) drug therapy; Z90.49 Acquired absence of other specified parts of digestive tract; Z3A.18 18 weeks gestation of pregnancy; Z90.89 Acquired absence of other organs; Z98.890 Other specified postprocedural states; Z91.040 Latex allergy status
CPT/HCPCS: 96361; 96374; 99283; J2405; J7040; J7050; 99284

== ENCOUNTER 2017-06-03 20:17 | Emergency (ER) | payer OTHER, MEDICAID ==
[2017-06-03 20:27] VITALS: BP 136/114
[2017-06-03] MEDS ORDERED: Acetaminophen/HYDROcodone 325-5 MG Tab PO ONE (21:07)
[2017-06-03] MEDS ORDERED: Acetaminophen Soln 650 MG/20.3 ML UD Cup PO ONE (21:23)
--- NOTE | 2017-06-03 21:23 | EDM.PDOC ---
ED HPI GENERAL MEDICAL PROBLEM - General Chief Complaint: Lower Extremity Injury/Pain Stated Complaint: FELL & INJURED RIGHT FOOT Time Seen by Provider: 06/03/17 20:45 Source of Information: Reports: Patient, RN Notes Reviewed, Other (Friend) History Limitations: Reports: No Limitations - History of Present Illness INITIAL COMMENTS - FREE TEXT/NARRATIVE: The patient states that she was going down some steps and missed one of them, coming down hard on her right foot onto the step below, around 12:45 this afternoon. She did not fall. She presents with pain to the dorsolateral aspect of her right foot that radiates to the lateral sole, getting worse. She has been icing her foot today. No prior right foot injury, but she does have a prior right fifth toe fracture. The patient is 28 weeks gestation. The patient's PCP is Dr. Patricia Monreal. Her Biomedical Manager is Dr. Chang. She does not have a prior relationship with an Orthopedic Surgeon. 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: Neurological History: Reports: Seizure Psychiatric History: Reports: Depression Endocrine/Metabolic History: Reports: Obesity/BMI 30+ - Infectious Disease History Infectious Disease History: Reports: Human Papilloma Virus (HPV) - Past Surgical History HEENT Surgical History: Reports: Adenoidectomy, Myringotomy w Tube(s) (bilateral ), Tonsillectomy Other HEENT Surgeries/Procedures: adenoids GI Surgical History: Reports: Appendectomy, Cholecystectomy, Other (See Below) ( Exploratory laparoscopy with lysis of adhesions) Female Surgical History: Reports: Section (x 3), LEEP Social & Family History - Family History Family Medical History: Noncontributory Oncologic: Reports: Skin - Tobacco Use Smoking Status *Q: Former Smoker Years of Tobacco use: 10 Used Tobacco, but Quit: Yes Month Tobacco Last Used: 2014 Second Hand Smoke Exposure: No - Caffeine Use Caffeine Use: Reports: None - Alcohol Use Alcohol Use History: Yes Days Per Week of Alcohol Use: 2 Number of Drinks Per Day: 0 Total Drinks Per Week: 0 Alcohol Use Frequency: Socially - Recreational Drug Use Recreational Drug Use: No - Living Situation & Occupation Living situation: Reports: , with Family (4 kids) Occupation: Employed Review of Systems - Review of Systems Review Of Systems: See Below Constitutional: Reports: No Symptoms Eyes: Reports: No Symptoms Ears: Reports: No Symptoms Nose: Reports: No Symptoms Mouth/Throat: Reports: No Symptoms Respiratory: Reports: No Symptoms Cardiovascular: Reports: No Symptoms GI/Abdominal: Reports: No Symptoms Genitourinary: Reports: No Symptoms Musculoskeletal: Reports: No Symptoms Skin: Reports: No Symptoms Neurological: Reports: No Symptoms Psychiatric: Reports: No Symptoms ED EXAM, GENERAL - Physical Exam Exam: See Below Exam Limited By: No Limitations General Appearance: Alert, WD/WN, No Apparent Distress Extremities: Other (No visible abnormality to the right foot, when compared to the left, such as swelling, erythema, ecchymosis, or abrasion. No significant tenderness to palpation of the dorsal or lateral aspects of the right foot. Neurovascular status of the right foot is intact.) Course - Vital Signs Last Recorded V/S: Last Vital Signs Temp 36.4 C 06/03/17 20:25 Pulse 81 06/03/17 20:25 Resp 18 06/03/17 20:25 BP 136/114 H 06/03/17 20:25 Pulse Ox 99 06/03/17 20:25 - Orders/Labs/Meds Orders: Active Orders 24 hr Category Date Time Status Foot Comp Min 3V Rt [CR] Stat Exams 06/03/17 20:55 Taken Meds: Medications Discontinued Medications Generic Name Dose Route Start Last Admin Trade Name Freq PRN Reason Stop Dose Admin Acetaminophen 650 mg 06/03/17 21:29 06/03/17 21:33 Tylenol PO 06/03/17 21:30 650 mg ONETIME STA Administration - Re-Assessments/Exams Free Text/Narrative Re-Assessment/Exam: 06/03/17 21:16 4 view radiographs of the right foot appear to be entirely normal. No fracture or dislocation identified. Formal read per the Radiologist pending. 06/03/17 21:22 X-ray results discussed with the patient and her fianc. No foot fracture. She likely bruised her foot when she came down on it hard. I'm recommending soft supportive shoes and limited ambulation. Tylenol for discomfort. Departure - Departure Time of Disposition: 21:25 Disposition: Home, Self-Care 01 Condition: Good Clinical Impression: Contusion of right foot - Discharge Information Instructions: Foot Contusion, [id number] Referrals: Patricia Monreal DO [Primary Care Provider] - Forms: ED Department Discharge Additional Instructions: You were seen in the emergency room after missing a step and coming down hard on your right foot earlier today. Workup in the ER included x-rays of your right foot. Your x-rays appear to be normal. No broken bones or dislocations. Your right foot pain is MOST LIKELY due to a bruise of your foot. We recommend you wear soft, supportive shoes, and try to limit walking for the next couple of days. Take [id number] Tylenol as needed for discomfort. If any other problems, please do not hesitate to return to the ER. - My Orders Last 24 Hours: My Active Orders 06/03/17 20:55 Foot Comp Min 3V Rt [CR] Stat - Assessment/Plan Last 24 Hours: My Active Orders 06/03/17 20:55 Foot Comp Min 3V Rt [CR] Stat
[2017-06-03] MEDS ORDERED: Acetaminophen 325 MG Tab PO STA (21:29)
--- NOTE | 2017-06-04 07:44 | CR ---
Right foot: Four views of the right foot were obtained. Comparison: Previous right foot study of 02/06/16. Well-corticated bony density is again noted off the dorsal navicular bone which is incidental. Minimal plantar spur is seen. Joint spaces are preserved. No acute fracture or other bony abnormality is seen. Impression: 1. Incidental findings. Nothing acute is appreciated on right foot study. Diagnostic code #2
== END 2017-06-03 21:35 | disposition home or self-care (01) ==
LOC: JD.ED 20:17
DX: S90.31XA Contusion of right foot, initial encounter (principal); I10 Essential (primary) hypertension; E66.9 Obesity, unspecified; Z98.890 Other specified postprocedural states; Z96.22 Myringotomy tube(s) status; Z90.49 Acquired absence of other specified parts of digestive tract; Z91.040 Latex allergy status; Z88.5 Allergy status to narcotic agent; Z68.41 Body mass index [BMI] 40.0-44.9, adult; Z87.891 Personal history of nicotine dependence; W10.9XXA Fall (on) (from) unspecified stairs and steps, initial encounter
CPT/HCPCS: 73630; 99283; A9270; 99282

== ENCOUNTER 2017-08-06 08:58 | Inpatient (IN) | payer OTHER, MEDICAID ==
[2017-08-06] MEDS ORDERED: Metoclopramide 10 MG/2 ML SDV IVPUSH ONE (09:30)
[2017-08-06] MEDS ORDERED: Citric Acid/Sodium Citrate Solution 30 ML Cup PO ONE (09:30)
[2017-08-06] MEDS: Lactated Ringers 1,000 ML IV SCH ×2 (09:31→09:59)
--- NOTE | 2017-08-06 09:38 | PCM.PREANE ---
Preanesthetic Assessment - Anesthesia/Transfusion/Family Hx Anesthesia History: Prior Anesthesia Without Reaction Family History of Anesthesia Reaction: No Transfusion History: No Prior Transfusion(s) Type of Transfusion Reactions: Reports: Unknown Intubation History: Unknown - Review of Systems General: No Symptoms Pulmonary: No Symptoms Cardiovascular: No Symptoms, Other (HTN induced) Gastrointestinal: Abdominal Pain (contractions with labor) Neurological: Seizure (For the past 2 years has been having seizures daily up to a month ago took medication today) - Physical Assessment NPO Status Date: 08/06/17 NPO Status Time: 05:00 Pulse: 80 O2 Sat by Pulse Oximetry: 97 Respiratory Rate: 18 Blood Pressure: 143/87 Temperature: 36.8 C Vital Signs: Last Vital Signs Temp 36.8 C 08/06/17 09:12 Pulse 80 08/06/17 09:12 Resp 18 08/06/17 09:12 BP 143/87 H 08/06/17 09:12 Pulse Ox Height: 1.57 m Weight: 103.283 kg ASA Class: 2E Mental Status: Alert & Oriented x3 Airway Class: Mallampati = 2 Dentition: Reports: Normal Dentition Thyro-Mental Finger Breadths: 3 Mouth Opening Finger Breadths: 3 ROM/Head Extension: Full Lungs: Clear to Auscultation, Normal Respiratory Effort Cardiovascular: Regular Rate, Regular Rhythm, No Murmurs - Allergies Allergies/Adverse Reactions: Allergies Allergy/AdvReac Type Severity Reaction Status Date / Time latex Allergy Rash Verified 08/06/17 09:19 tramadol AdvReac Seizure Verified 08/06/17 09:19 - Blood Blood Available: Yes - Anesthesia Plan Pre-Op Medication Ordered: Antacids, Beta Siddharth Beta Siddharth: Atenolol - Acknowledgements Anesthesia Type Planned: Spinal Pt an Appropriate Candidate for the Planned Anesthesia: Yes Alternatives and Risks of Anesthesia Discussed w Pt/Guardian: Yes Pt/Guardian Understands and Agrees with Anesthesia Plan: Yes PreAnesthesia Questionnaire - Past Health History Medical/Surgical History: Denies Medical/Surgical History Cardiovascular History: Reports: Hypertension Other Cardiovascular History: Experiences PIH/Toxemia with each including highly elevated blood pressures, according to pt. 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 Was on Zoloft x 6 mos and the situation resolved with counseling and no longer having colic, which was causing pt to doubt herself a lot. Endocrine/Metabolic History: Reports: Obesity/BMI 30+ - Infectious Disease History Infectious Disease History: Reports: Human Papilloma Virus (HPV) - Past Surgical History HEENT Surgical History: Reports: Adenoidectomy, Myringotomy w Tube(s) (bilateral ), Tonsillectomy Other HEENT Surgeries/Procedures: adenoids GI Surgical History: Reports: Appendectomy, Cholecystectomy, Other (See Below) ( Exploratory laparoscopy with lysis of adhesions) Female Surgical History: Reports: Section (x 3), LEEP - SUBSTANCE USE Smoking Status *Q: Former Smoker Tobacco Use Within Last Twelve Months: Cigarettes Second Hand Smoke Exposure: No Days Per Week of Alcohol Use: 2 Number of Drinks Per Day: 0 Total Drinks Per Week: 0 Recreational Drug Use History: No - HOME MEDS Home Medications: Home Meds levETIRAcetam [Keppra] 750 mg PO TID 06/03/17 [History] Albuterol Sulfate [Proair Hfa] 8.5 gm IH ASDIRECTED 07/31/17 [History] Labetalol HCl [Labetalol] 100 mg PO TID 07/31/17 [History] Pnv No.122/Iron/Folic Acid [ Multi Tablet] 1 each PO DAILY 07/31/17 [ History] - CURRENT (IN HOUSE) MEDS Current Meds: Current Medications Cefazolin Sodium/Dextrose 2 gm (/ Premix) 50 mls @ 100 mls/hr IV ONETIME ONE Stop: 08/06/17 10:29 Lactated Ringer's (Ringers, Lactated) 1,000 mls @ 125 mls/hr IV ASDIRECTED [facility] Last Admin: 08/06/17 09:31 Dose: 125 mls/hr Oxytocin/Lactated Ringer's (Pitocin In Lr 10 Units/1,000 Ml) 10 unit in 1,000 mls @ 500 mls/hr IV ASDIRECTED KAILEE Discontinued Medications Citric Acid/Sodium Citrate (Bicitra Solution) 30 ml PO ONETIME ONE Stop: 08/06/17 09:31 Last Admin: 08/06/17 09:31 Dose: 30 ml Metoclopramide HCl (Reglan) 10 mg IVPUSH ONETIME ONE Stop: 08/06/17 09:31 Last Admin: 08/06/17 09:31 Dose: 10 mg
--- NOTE | 2017-08-06 09:49 | PCM.LDHP ---
<MadisonPatricia clarke - Last Filed: 08/06/17 10:11> L&D History of Present Illness - General Date of Service: 08/06/17 Admit Problem/Dx: Patient Status Order with Admit Dx/Problem History of Present Illness: Saima is a pleasant 31-year-old white female, 37 weeks 1/7 days gestation with an WAYNE of 08/26/2017 who arrived to labor and delivery, 2016 for worsening contractions that began yesterday and become more consistent around 3 am this morning. She currently is experiencing 8/10 pain and the contractions are noted about every 3-5 minutes. She has not experienced any gush of fluid. She is presenting for a repeat caesarean section. This will be her fourth caesarean section. She is currently taking 750 mg Keppra BID for seizure control which she took this am. Her last seizure was about one month ago. She is currently taking Labetalol for induced elevated blood pressure. She did not take her labetalol this morning. She ate one piece of toast at 5 am. Patient has been experiencing fatigue and appropriate weight changes throughout . She has been experiencing nausea and vomiting intermittently throughout . Denies fever/chills, sweating/night sweats and malaise. Denies constipation and diarrhea. No history of bleeding disorders. Course: The patient's last known menstrual period was 11/14/2016. No control was in place at the time of conception. She received 4 ultrasounds throughout : 08/01/2017, 05/16/2017, 04/22/2017, 01/09/2017. First menstrual period began at 11 years old. Her course has consisted of daily seizures until one month ago when her Keppra dose was increased from 500 mg BID to 750 mg BID. She has 4 previous pregnancies. Patient plans to receive Tdap vaccinations. Patient is B+ blood type. Group B strep screen was negative. Patient denies an up to date flu shot, but plans to receive one. Patient has a history of an abnormal pap smear which was positive for HPV. She underwent a colposcopy and LEEP procedure. Her most recent pap smear was 12/18/2016 and the results were unremarkable. Her fundal height growth was appropriate. Patient plans on . She will receive an epidural before her repeat caesarean section. Allergies: Tramadol. Reaction: seizures. Latex. Reaction: rash. Immunizations: Up to date on immunizations. Patient plans to receive the Tdap vaccination. No current flu shot. Current Home Medications: Vitamins. 2 gummies PO qd. Folic acid supplements. Labetalol HCl. 100 mb. PO q8h. ProAir HFA. PRN q4-6h. Keppra. 750 mg. PO BID. Zoloft. Past Medical History: Seizures. Kidney stones. Past Surgical History: Cholecystectomy. 2009. Laparoscopic appendetomy. 2017. Family History: Father- thyroid dysfunction. Maternal grandfather- HTN. Social History: Patient is and lives with her and their children and feels safe at home. She is in a monogamous relationship with one sexual partner in the last 6 months. Labs/Studies: CBC. Type and screen. 08/06/17 09:12 Patient Status [ADT] Routine Admission Diagnosis/Problem Admission Diagnosis/Problem 08/06/17 09:37 08/06/17 09:37 08/06/17 09:49 08/06/17 10:00 Source of Information: Patient History Limitations: Reports: No Limitations - History of Present Illness Timing/Duration: Reports: minutes: (a 3-5 minutes) Location, : Reports: Abdomen Quality: Reports: Ache, Sharp, Stabbing Severity: Mild Pain Score: 8 Improves with: Reports: None Worsens with: Reports: None Associated Symptoms: Reports: N - Related Data Allergies/Adverse Reactions: Allergies Allergy/AdvReac Type Severity Reaction Status Date / Time latex Allergy Rash Verified 08/06/17 09:19 tramadol AdvReac Seizure Verified 08/06/17 09:19 Home Medications: Home Meds levETIRAcetam [Keppra] 750 mg PO TID 06/03/17 [History] Albuterol Sulfate [Proair Hfa] 8.5 gm IH ASDIRECTED 07/31/17 [History] Labetalol HCl [Labetalol] 100 mg PO TID 07/31/17 [History] Pnv No.122/Iron/Folic Acid [ Multi Tablet] 1 each PO DAILY 07/31/17 [ History] Past Medical History - Past Health History Medical/Surgical History: Denies Medical/Surgical History Cardiovascular History: Reports: Hypertension Other Cardiovascular History: Experiences PIH/Toxemia with each including highly elevated blood pressures, according to pt. 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 Was on Zoloft x 6 mos and the situation resolved with counseling and infant no longer having colic, which was causing pt to doubt herself a lot. Endocrine/Metabolic History: Reports: Obesity/BMI 30+ - Infectious Disease History Infectious Disease History: Reports: Human Papilloma Virus (HPV) - Past Surgical History HEENT Surgical History: Reports: Adenoidectomy, Myringotomy w Tube(s) (bilateral ), Tonsillectomy Other HEENT Surgeries/Procedures: adenoids GI Surgical History: Reports: Appendectomy, Cholecystectomy, Other (See Below) ( Exploratory laparoscopy with lysis of adhesions) Female Surgical History: Reports: Section (x 3), LEEP Social & Family History - Family History Family Medical History: Noncontributory Oncologic: Reports: Skin - Tobacco Use Smoking Status *Q: Former Smoker Years of Tobacco use: 10 Used Tobacco, but Quit: Yes Month Tobacco Last Used: 2014 Second Hand Smoke Exposure: No - Caffeine Use Caffeine Use: Reports: None - Alcohol Use Days Per Week of Alcohol Use: 2 Number of Drinks Per Day: 0 Total Drinks Per Week: 0 - Recreational Drug Use Recreational Drug Use: No - Living Situation & Occupation Living situation: Reports: , with Family (4 kids) Occupation: Employed [employer] Review of Systems - Review of Systems: Review Of Systems: See Below General: Reports: Fatigue HEENT: Reports: No Symptoms Pulmonary: Reports: No Symptoms Cardiovascular: Reports: No Symptoms Gastrointestinal: Reports: No Symptoms Genitourinary: Reports: No Symptoms Musculoskeletal: Reports: No Symptoms Skin: Reports: No Symptoms Psychiatric: Reports: No Symptoms Neurological: Reports: No Symptoms Hematologic/Lymphatic: Reports: No Symptoms Immunologic: Reports: No Symptoms L&D Exam - Vital Signs Vital Signs: Physical Examination: General: The patient is a well-developed, well-nourished pleasant female of stated age, in no acute distress. Skin: Skin of legs, arms and abdomen is uniformally cool and dry without lesions or masses. No cyanosis, clubbing, jaundice, pallor or edema noted. Healthy nails, strong and not brittle. Eyes: Conjunctiva is pink and moist bilaterally. No redness or injections of conjunctiva or sclera. Lymph nodes: No enlargements or tenderness to palpation. Lungs: No respiratory distress, nasal flaring, intercostal retractions, or gasping. CTA bilaterally. Cardiovascular: RRR, S1 and S2 noted. No M/R/G. Dorsalis pedis, posterior tibial and radial pulses are 2+ and symmetric. Capillary refill <2 seconds. Patient has 1+ pitting edema on lower legs and feet. Trace edema noted on hands. Abdomen: Protuberant with . Fundal height was not assessed. Reflexes: Patellar reflexes are 2+. Hyperreflexia noted. Last Vital Signs Temp 98.2 F 08/06/17 09:12 Pulse 80 08/06/17 09:12 Resp 18 08/06/17 09:12 BP 143/87 H 08/06/17 09:12 Pulse Ox Weight: 227 lb 11.2 oz - OB Specific Contraction Intensity: Mild to Moderate Movement: Active Heart Tones: Present - Exam General: Alert, Oriented HEENT: Conjunctiva Clear, Hearing Intact, PERRLA Neck: Supple, Trachea Midline, Full Range of Motion Lungs: Clear to Auscultation, Normal Respiratory Effort Cardiovascular: Regular Rate, Regular Rhythm, Normal S1, Normal S2 GI/Abdominal Exam: Normal Bowel Sounds, Soft, Non-Tender, No Organomegaly, No Distention, No Abnormal Bruit, No Mass, Pelvis Stable Rectal Exam: Deferred Genitourinary: Deferred Back Exam: Normal Inspection Extremities: Normal Inspection, Normal Range of Motion, Non-Tender, Normal Capillary Refill, Pedal Edema (trace pedal edema. 1+ pitting tibial edema.) Skin: Warm, Dry, Intact Neurological: Other (patellar reflexes 2+ bilaterally) DTR: 2+: Bicep (L), Bicep (R), Patella (L), Patella (R) Psychiatric: Alert, Normal Affect, Normal Mood - Patient Data Result Diagrams: 08/06/17 09:30 Orders Last 24hrs: Assessment: 1- 37 weeks 1/7 days intrauterine . 2- Elevated blood pressure. 3- Seizure management. 4- RCS. Plan: 1- Transport to OR. 2- Epidural. 3- Caesarean Delivery. Active Orders 24 hr Category Date Time Status Patient Status [ADT] Routine ADT 08/06/17 09:12 Active Antiembolic Devices [RC] .Routine Care 08/06/17 09:19 Active Vaccines to be Administered [RC] PER UNIT ROUTINE Care 08/06/17 09:33 Active Vital Signs [RC] PFP Care 08/06/17 09:12 Active CBC WITH AUTO DIFF [HEME] Stat Lab 08/06/17 09:30 Received TYPE AND SCREEN [BBK] Stat Lab 08/06/17 09:30 Received Diphth,Pertuss(Acell),Tet Vac [Adacel] Med 08/06/17 09:33 Once 0.5 ml IM .ONCE ONE Lactated Ringers [Ringers, Lactated] 1,000 ml Med 08/06/17 09:15 Active IV ASDIRECTED Oxytocin/Lactated Ringers [Pitocin in LR 10 Units/1,000 Med 08/06/17 10:00 Active ML] 10 unit in 1,000 ml IV ASDIRECTED Pharmacy to Dose [Pharmacy to Dose - InFluenza Vaccine] Med 08/06/17 09:33 Once 1 each IM ONETIME ONE ceFAZolin [Ancef] 2 gm Med 08/06/17 10:00 Active Premix Bag 1 bag IV ONETIME DVT/VTE Prophylaxis Reflex [OM.PC] Routine Oth 08/06/17 09:12 Ordered Peripheral IV Insertion Adult [OM.PC] Routine Oth 08/06/17 09:12 Ordered Schedule Procedure [COMM] Per Unit Routine Oth 08/06/17 09:12 Ordered Resuscitation Status Routine Resus Stat 08/06/17 09:12 Ordered Medication Orders Diphtheria/Tetanus/Acell Pertussis (Adacel) 0.5 ml IM .ONCE ONE Stop: 08/06/17 09:34 Cefazolin Sodium/Dextrose 2 gm (/ Premix) 50 mls @ 100 mls/hr IV ONETIME ONE Stop: 08/06/17 10:29 Lactated Ringer's (Ringers, Lactated) 1,000 mls @ 125 mls/hr IV ASDIRECTED KAILEE Last Admin: 08/06/17 09:31 Dose: 125 mls/hr Oxytocin/Lactated Ringer's (Pitocin In Lr 10 Units/1,000 Ml) 10 unit in 1,000 mls @ 500 mls/hr IV [facility] <BernardoObie Butlert - Last Filed: 08/06/17 10:25> L&D History of Present Illness - General Admit Problem/Dx: Patient Status Order with Admit Dx/Problem 08/06/17 09:12 Patient Status [ADT] Routine Admission Diagnosis/Problem Admission Diagnosis/Problem L&D Exam - Exam Exam: See Below - Vital Signs Vital Signs: Last Vital Signs Temp 98.2 F 08/06/17 09:42 Pulse 80 08/06/17 09:42 Resp 18 08/06/17 09:42 BP 143/87 H 08/06/17 09:42 Pulse Ox 97 08/06/17 09:42 - OB Specific Fundal Height In cm: 38 Contraction Duration (sec): 60 Contraction Frequency (min): 3 Contraction Intensity: Moderate Movement: Active Heart Tones: Present Heart Tones per Min: 140 Heart Rate (FHR) Variability: Moderate (6-25 bmp) Presentation: Vertex - Exam General: Alert, Oriented HEENT: PERRLA, Conjunctiva Clear, EACs Clear, EOMI, Hearing Intact, Mucosa Moist & [place], Nares Patent, Normal Nasal Septum, Posterior Pharynx Clear, TMs Clear Neck: Supple, Trachea Midline Lungs: Clear to Auscultation, Normal Respiratory Effort Cardiovascular: Regular Rate, Regular Rhythm GI/Abdominal Exam: Normal Bowel Sounds, Soft, Non-Tender, No Organomegaly, No Distention, No Abnormal Bruit, No Mass, Pelvis Stable Back Exam: Normal Inspection, Full Range of Motion Extremities: Normal Inspection, Normal Range of Motion, Non-Tender, No Pedal Edema, Normal Capillary Refill Skin: Warm, Dry, Intact Psychiatric: Alert, Normal Affect, Normal Mood - Patient Data Lab Results Last 24 hrs: Laboratory Results - last 24 hr 08/06/17 Range/Units 09:30 WBC 12.78 H (3.98-10.04) K/mm3 RBC 4.12 (3.98-5.22) M/mm3 Hgb 12.3 (11.2-15.7) gm/L Hct 35.7 (34.1-44.9) % MCV 86.7 (79.4-94.8) fl MCH 29.9 (25.6-32.2) pg MCHC 34.5 (32.2-35.5) g/dl RDW Std Deviation 39.2 (36.4-46.3) fL Plt Count 264 (182-369) K/mm3 MPV 9.5 (9.4-12.3) fl Neut % (Auto) 77.9 H (34.0-71.1) % Lymph % (Auto) 13.5 L (19.3-51.7) % [place] % (Auto) 7.8 (4.7-12.5) % Eos % (Auto) 0.3 L (0.7-5.8) Baso % (Auto) 0.2 (0.1-1.2) % Neut # (Auto) 9.96 H (1.56-6.13) K/mm3 Lymph # (Auto) 1.72 (1.18-3.74) K/mm3 [place] # (Auto) 1.00 H (0.24-0.36) K/mm3 Eos # (Auto) 0.04 (0.04-0.36) K/mm3 Baso # (Auto) 0.02 (0.01-0.08) K/mm3 Manual Slide Review Normal smear Result Diagrams: 08/06/17 09:30 - Problem List (1) 37 weeks gestation of SNOMED Code(s): 97950977 ICD Code: Z3A.37 - 37 WEEKS GESTATION OF Status: Acute Current Visit: Yes (2) delivery, delivered, current hospitalization SNOMED Code(s): 775558724 ICD Code: O82 - ENCOUNTER FOR DELIVERY WITHOUT INDICATION Status: Acute Current Visit: Yes (3) Seizure disorder during , delivered SNOMED Code(s): 482290472 ICD Code: O99.354 - DISEASES OF THE NERVOUS SYSTEM COMPLICATING CHILDBIRTH; G40.909 - EPILEPSY, UNSP, NOT INTRACTABLE, WITHOUT STATUS EPILEPTICUS Status: Acute Current Visit: Yes (4) Gestational hypertension affecting fourth SNOMED Code(s): 36908438 ICD Code: O13.9 - GESTATIONAL HTN W/O SIGNIFICANT PROTEINURIA, UNSP TRIMESTER ; O09.40 - SUPERVISION OF W GRAND MULTIPARITY, UNSP TRIMESTER Status : Acute Current Visit: Yes Problem List Initiated/Reviewed/Updated: No Orders Last 24hrs: Active Orders 24 hr Category Date Time Status Patient Status [ADT] Routine ADT 08/06/17 09:12 Active Antiembolic Devices [RC] .Routine Care 08/06/17 09:19 Active Vaccines to be Administered [RC] PER UNIT ROUTINE Care 08/06/17 09:33 Active Vital Signs [RC] PFP Care 08/06/17 09:12 Active TYPE AND SCREEN [BBK] Stat Lab 08/06/17 09:30 Received Diphth,Pertuss(Acell),Tet Vac [Adacel] Med 08/06/17 13:00 Once 0.5 ml IM .ONCE ONE FLU Vacc [id number](6MOS UP)/PF [Flulaval Quad [id number] Med 08/06/17 13:00 Once ] 60 mcg IM ONETIME ONE Lactated Ringers [Ringers, Lactated] 1,000 ml Med 08/06/17 09:15 Active IV ASDIRECTED Oxytocin/Lactated Ringers [Pitocin in LR 10 Units/1,000 Med 08/06/17 10:00 Active ML] 10 unit in 1,000 ml IV ASDIRECTED ceFAZolin [Ancef] 2 gm Med 08/06/17 10:00 Active Premix Bag 1 bag IV ONETIME DVT/VTE Prophylaxis Reflex [OM.PC] Routine Oth 08/06/17 09:12 Ordered Peripheral IV Insertion Adult [OM.PC] Routine Oth 08/06/17 09:12 Ordered Schedule Procedure [COMM] Per Unit Routine Oth 08/06/17 09:12 Ordered Resuscitation Status Routine Resus Stat 08/06/17 09:12 Ordered Medication Orders Diphtheria/Tetanus/Acell Pertussis (Adacel) 0.5 ml IM .ONCE ONE Stop: 08/06/17 13:01 Cefazolin Sodium/Dextrose 2 gm (/ Premix) 50 mls @ 100 mls/hr IV ONETIME ONE Stop: 08/06/17 10:29 Lactated Ringer's (Ringers, Lactated) 1,000 mls @ 125 mls/hr IV ASDIRECTED KAILEE Last Admin: 08/06/17 09:59 Dose: 125 mls/hr Infusion: 08/06/17 09:59 Dose: 125 mls/hr Admin: 08/06/17 09:31 Dose: 125 mls/hr Oxytocin/Lactated Ringer's (Pitocin In Lr 10 Units/1,000 Ml) 10 unit in 1,000 mls @ 500 mls/hr IV ASDIRECTED KAILEE Assessment/Plan Comment:: Patient seen and examined by me and discussed with student
[2017-08-06] MEDS ORDERED: Bupivacaine 0.5% 30 ML SDV ONE (09:59)
[2017-08-06] MEDS ORDERED: ceFAZolin 2 GM in Premix Bag 1 BAG IV ONE (10:00)
[2017-08-06] MEDS ORDERED: Oxytocin/Lactated Ringers 10 UNIT/1,000 ML BAG IV SCH (10:00)
[2017-08-06] MEDS ORDERED: Morphine PF 10 MG/10 ML SDV ONE (10:06)
[2017-08-06] MEDS ORDERED: Phenylephrine 1% 10 MG/ML SDV ONE (10:06)
[2017-08-06] MEDS ORDERED: ceFAZolin 1 GM Vial ONE (10:06)
[2017-08-06] MEDS ORDERED: Oxytocin 10 Units/1 ML SDV ONE ×2 (10:07→11:22)
[2017-08-06] MEDS ORDERED: Lactated Ringers 1,000 ML ONE (10:25)
[2017-08-06] MEDS ORDERED: fentaNYL 100 MCG/2 ML SDV ONE ×2 (11:18→11:55)
[2017-08-06] MEDS ORDERED: Ketorolac 30 MG/ML SDV ONE (11:51)
[2017-08-06] MEDS ORDERED: fentaNYL 100 MCG/2 ML SDV IVPUSH PRN (11:52)
[2017-08-06] MEDS ORDERED: diphenhydrAMINE 50 MG/ML SDV IVPUSH PRN ×2 (11:52→13:21)
--- NOTE | 2017-08-06 11:54 | PCM.POSTAN ---
POST ANESTHESIA ASSESSMENT - MENTAL STATUS Mental Status: Alert, Oriented - VITAL SIGNS Pulse Rate: 79 SaO2: 98 Resp Rate: 16 Blood Pressure: 113/69 Temperature: 36.5 C - RESPIRATORY Respiratory Status: Respiratory Rate WNL, Airway Patent, O2 Saturation Stable - CARDIOVASCULAR CV Status: Pulse Rate WNL, Blood Pressure Stable - GASTROINTESTINAL GI Status: No Symptoms - PAIN Pain Score: 7 Free Text/Narrative:: patient experiencing right shoulder pain 100mcg fentanyl given - POST OP HYDRATION Hydration Status: Adequate & Stable - OBSERVATIONS Free Text/Narrative:: no anesthesia complications noted
--- NOTE | 2017-08-06 12:48 | PCM.OPNOTE ---
- General Post-Op/Procedure Note Date of Surgery/Procedure: 08/06/17 Operative Procedure(s): Repeat low segment transverse Pre Op Diagnosis: 37 weeks plus estimated gestational age, gestational hypertension, seizure disorder, repeat section contractions every 3 minutes and strong. Post-Op Diagnosis: Same plus meconium-stained amnionic fluid Anesthesia Technique: Spinal Primary Surgeon: Obie Chang Secondary Surgeon: Kam Bliss Anesthesia Provider: Luis Stinson Cloth Examiner Machine: Patricia Madison) Fluid Replacement, Intraop: 3,500 Output, Urine Amount: 250 EBL in mLs: 625 Drain/Tube Comments:: Dupont Complications: None Condition: Good Free Text/Narrative:: Patient was transported to the operating room and placed under spinal anesthesia in the supine position with wedge under the right hip and right flank Dupont catheter coursing gravity drainage under the right knee. SCDs in place and functioning. Ancef 2 g given intravenously. Prepared and draped in a sterile fashion. Timeout performed confirming name date of and procedure as repeat section. Adequate level of anesthesia was confirmed injecting 20 mL of 0.5% Marcaine in the area of the planned incision after the arrived in the operating room the incision was made and care was sharp section to into the anterior fascia peritoneal cavity was entered with some difficulty because adhesions to the anterior abdominal wall which were subsequently lysed with blunt and sharp dissection. Bladder flap created pushed caudad low segment transverse performed meconium-stained amnionic fluid upon entry into the amnionic cavity the female delivered at 1101 hrs. on Saturday08/06/17 Dr. Matamoros senior sql server dba in attendance Apgars 5/7/9 at one and 5 and 10 minutes respectively weight 4 lbs. 9 oz. no nuchal cord. Cord blood was collected from three-vessel cord placenta was removed manually. Endometrial cavity inspected no membranes are remnants of placenta left. Cervical patency was assured. Sponge needle pack asthma sharp count correct times one and the uterine incision closed in 2 layers with running locking 0 Monocryl for the first layer horizontal imbricating modified Lembert suture for the second layer with 3 additional [id number] sutures to control hemostasis on the left side of the incision. The remaining omental adhesions were lysed from the anterior abdominal wall both tubes and ovaries appeared normal the clots were cleaned from the gutters and cul-de-sac uterus replaced into abdominal cavity the uterine incision reinspected no bleeding sponge needle pack and sharp count abdominal cavity was closed with #1 PDS for the anterior fascia irrigation was carried out and the skin was closed with 3-0 Monocryl subcuticular with Abhilash needle Dermabond Preneo. Clots were cleaned from the vagina. Patient transported postanesthesia care unit in satisfactory condition no blood transfusions required.
[2017-08-06] MEDS ORDERED: FLU Vacc QS 2017-18 (6mos UP)/PF 60 MCG/0.5 ML Syringe IM ONE (13:00)
[2017-08-06] MEDS ORDERED: Diphtheria,Pertussis(Acell),Tetanus Vaccine 0.5 ML SDV IM ONE (13:00)
[2017-08-06] MEDS ORDERED: Lanolin 100% Cream 7 GM Tube TOP PRN (13:21)
[2017-08-06] MEDS ORDERED: Docusate Sodium 100 MG Cap PO PRN (13:21)
[2017-08-06] MEDS ORDERED: Dextrose 5%-Lactated Ringers 1,000 ML IV SCH (13:21)
[2017-08-06] MEDS ORDERED: Acetaminophen 325 MG Tab PO PRN (13:21)
[2017-08-06] MEDS ORDERED: Naloxone 0.4 MG/ML SDV IVPUSH PRN (13:21)
[2017-08-06] MEDS ORDERED: Ondansetron 4 MG/2 ML SDV IV PRN (13:21)
[2017-08-06] MEDS ORDERED: ePHEDrine 50 MG/ML SDV IVPUSH PRN (13:21)
[2017-08-06] MEDS ORDERED: Sodium Chloride 0.9% 10 ML Syringe FLUSH PRN (13:21)
[2017-08-06] MEDS: Simethicone 80 MG Tab.Chew PO SCH ×3 (13:32→21:08)
[2017-08-06] MEDS: Acetaminophen/oxyCODONE 325-5 MG Tab PO PRN ×2 (14:11→20:01)
[2017-08-06] MEDS: levETIRAcetam 500 MG Tab PO SCH ×2 (15:10→22:07)
[2017-08-06] MEDS: Ketorolac 30 MG/ML SDV IVPUSH SCH (18:23)
[2017-08-06] MEDS ORDERED: Lactated Ringers 1,000 ML IV SCH ×2 (19:15→22:15)
[2017-08-06] MEDS ORDERED: Lactated Ringers 500 ML IV SCH (20:15)
[2017-08-06] MEDS: Labetalol 100 MG Tab PO SCH (21:07)
[2017-08-07] MEDS: Ketorolac 30 MG/ML SDV IVPUSH SCH ×2 (00:15→05:57)
[2017-08-07] MEDS: Acetaminophen/oxyCODONE 325-5 MG Tab PO PRN ×5 (01:36→23:14)
[2017-08-07] MEDS: Labetalol 100 MG Tab PO SCH (08:20)
[2017-08-07] MEDS: Simethicone 80 MG Tab.Chew PO SCH ×4 (08:20→21:25)
--- NOTE | 2017-08-07 08:24 | PCM48HPAN ---
Post Anesthesia Note - EVALUATION WITHIN 48HRS OF ANESTHETIC Vital Signs in Normal Range: Yes Patient Participated in Evaluation: Yes Respiratory Function Stable: Yes Airway Patent: Yes Cardiovascular Function Stable: Yes Hydration Status Stable: Yes Pain Control Satisfactory: Yes Nausea and Vomiting Control Satisfactory: Yes Mental Status Recovered: Yes
[2017-08-07] MEDS: levETIRAcetam 500 MG Tab PO SCH ×3 (09:04→21:25)
--- NOTE | 2017-08-07 09:31 | PCM.SURGPN ---
- General Info Date of Service: 08/07/17 Date of Surgery/Procedure: 08/06/17 POD#: 1 Functional Status: Reports: Pain Controlled - Review of Systems General: Reports: No Symptoms HEENT: Reports: No Symptoms Pulmonary: Reports: No Symptoms Cardiovascular: Reports: No Symptoms Gastrointestinal: Reports: No Symptoms Genitourinary: Reports: No Symptoms Musculoskeletal: Reports: No Symptoms Skin: Reports: No Symptoms Neurological: Reports: No Symptoms Psychiatric: Reports: No Symptoms - Patient Data Vitals - Most Recent: Last Vital Signs Temp 97.5 F 08/07/17 03:27 Pulse 84 08/07/17 08:20 Resp 14 08/07/17 06:52 BP 124/77 08/07/17 08:20 Pulse Ox 100 08/07/17 06:52 Weight - Most Recent: 227 lb 11.2 oz I&O - Last 24 Hours: Intake & Output 08/06/17 08/07/17 08/07/17 22:59 06:59 14:59 Intake Total 1700 1000 Output Total 225 1100 Balance 1475 -100 Lab Results Last 24 Hrs: Laboratory Results - last 24 hr 08/06/17 08/06/17 08/07/17 Range/Units 09:30 09:30 06:45 WBC 12.78 H 7.31 (3.98-10.04) K/mm3 RBC 4.12 3.38 L (3.98-5.22) M/mm3 Hgb 12.3 10.0 L (11.2-15.7) gm/L Hct 35.7 29.8 L (34.1-44.9) % MCV 86.7 88.2 (79.4-94.8) fl MCH 29.9 29.6 (25.6-32.2) pg MCHC 34.5 33.6 (32.2-35.5) g/dl RDW Std Deviation 39.2 39.2 (36.4-46.3) fL Plt Count 264 184 (182-369) K/mm3 MPV 9.5 9.5 (9.4-12.3) fl Neut % (Auto) 77.9 H 73.8 H (34.0-71.1) % Lymph % (Auto) 13.5 L 16.6 L (19.3-51.7) % [place] % (Auto) 7.8 7.8 (4.7-12.5) % Eos % (Auto) 0.3 L 1.4 (0.7-5.8) Baso % (Auto) 0.2 0.1 (0.1-1.2) % Neut # (Auto) 9.96 H 5.40 (1.56-6.13) K/mm3 Lymph # (Auto) 1.72 1.21 (1.18-3.74) K/mm3 [place] # (Auto) 1.00 H 0.57 H (0.24-0.36) K/mm3 Eos # (Auto) 0.04 0.10 (0.04-0.36) K/mm3 Baso # (Auto) 0.02 0.01 (0.01-0.08) K/mm3 Manual Slide Review Normal smear Blood Type B POSITIVE Gel Antibody Screen Negative Med Orders - Current: Current Medications Acetaminophen (Tylenol) 650 mg PO Q4H PRN PRN Reason: mild pain or fever Diphenhydramine HCl (Benadryl) 25 mg IVPUSH Q6H PRN PRN Reason: Itching or Nausea Docusate Sodium (Colace) 100 mg PO Q12H PRN PRN Reason: Constipation Emollient Ointment (Lansinoh Hpa) 0 gm TOP ASDIRECTED PRN PRN Reason: Sore Nipples Ephedrine Sulfate (Ephedrine Sulfate) 5 mg IVPUSH SEECOMMENT PRN PRN Reason: Other Lactated Ringer's (Ringers, Lactated) 1,000 mls @ 125 mls/hr IV ASDIRECTED [facility] Last Admin: 08/06/17 22:47 Dose: 125 mls/hr Ibuprofen (Motrin) 600 mg PO Q6H PRN PRN Reason: mild pain or fever Labetalol HCl (Normodyne) 100 mg PO BID [facility] Last Admin: 08/07/17 08:20 Dose: 100 mg Levetiracetam (Keppra) 500 mg PO TID [facility] Last Admin: 08/07/17 09:04 Dose: 500 mg Naloxone HCl (Narcan) 0.1 mg IVPUSH SEECOMMENT PRN PRN Reason: Respiratory Depression Ondansetron HCl (Zofran) 4 mg IV Q8H PRN PRN Reason: Nausea/Vomiting Oxycodone/Acetaminophen (Percocet 325-5 Mg) 2 tab PO Q4H PRN PRN Reason: Pain (moderate 4-6) Last Admin: 08/07/17 08:20 Dose: 2 tab Simethicone (Simethicone) 80 mg PO PCBED [facility] Last Admin: 08/07/17 08:20 Dose: 80 mg Sodium Chloride (Saline Flush) 10 ml FLUSH ASDIRECTED PRN PRN Reason: Keep Vein Open Discontinued Medications Bupivacaine HCl (Marcaine 0.5%) Confirm Administered Dose 30 ml .ROUTE .STK-MED ONE Stop: 08/06/17 10:00 Last Admin: 08/06/17 11:35 Dose: 20 ml Cefazolin Sodium (Ancef) Confirm Administered Dose 2 gm .ROUTE .STK-MED ONE Stop: 08/06/17 10:07 Citric Acid/Sodium Citrate (Bicitra Solution) 30 ml PO ONETIME ONE Stop: 08/06/17 09:31 Last Admin: 08/06/17 09:31 Dose: 30 ml Diphenhydramine HCl (Benadryl) 25 mg IVPUSH Q6H PRN PRN Reason: Itching Diphtheria/Tetanus/Acell Pertussis (Adacel) 0.5 ml IM .ONCE ONE Stop: 08/06/17 13:01 Fentanyl (Sublimaze) Confirm Administered Dose 100 mcg .ROUTE .STK-MED ONE Stop: 08/06/17 11:19 Fentanyl (Sublimaze) 50 mcg IVPUSH Q5M PRN PRN Reason: PAIN Stop: 08/06/17 18:00 Fentanyl (Sublimaze) Confirm Administered Dose 100 mcg .ROUTE .STK-MED ONE Stop: 08/06/17 11:56 Cefazolin Sodium/Dextrose 2 gm (/ Premix) 50 mls @ 100 mls/hr IV ONETIME ONE Stop: 08/06/17 10:29 Lactated Ringer's (Ringers, Lactated) 1,000 mls @ 125 mls/hr IV ASDIRECTED [facility] Last Admin: 08/06/17 09:59 Dose: 125 mls/hr Oxytocin/Lactated Ringer's (Pitocin In Lr 10 Units/1,000 Ml) 10 unit in 1,000 mls @ 500 mls/hr IV ASDIRECTED [facility] Lactated Ringer's (Ringers, Lactated) Confirm Administered Dose 1,000 mls @ as directed .ROUTE .STK-MED ONE Stop: 08/06/17 10:26 Dextrose/Lactated Ringer's (Dextrose 5%-Lactated Ringers) 1,000 mls @ 125 mls/ hr IV ASDIRECTED [facility] Stop: 08/06/17 21:20 Last Admin: 08/06/17 13:32 Dose: 125 mls/hr Lactated Ringer's (Ringers, Lactated) 500 mls @ 500 mls/hr IV ASDIRECTED [facility] Stop: 08/06/17 20:14 Last Admin: 08/06/17 19:28 Dose: 500 mls/hr Lactated Ringer's (Ringers, Lactated) 500 mls @ 250 mls/hr IV ASDIRECTED [facility] Stop: 08/06/17 22:14 Last Admin: 08/06/17 20:49 Dose: 250 mls/hr Ketorolac Tromethamine (Toradol) Confirm Administered Dose 30 mg .ROUTE .ST- MED ONE Stop: 08/06/17 11:52 Ketorolac Tromethamine (Toradol) 30 mg IVPUSH Q6H [facility] Stop: 08/07/17 05:31 Last Admin: 08/07/17 05:57 Dose: 30 mg Metoclopramide HCl (Reglan) 10 mg IVPUSH ONETIME ONE Stop: 08/06/17 09:31 Last Admin: 08/06/17 09:31 Dose: 10 mg Morphine Sulfate (Duramorph Pf) Confirm Administered Dose 10 mg .ROUTE .STK-MED ONE Stop: 08/06/17 10:07 Oxytocin (Pitocin) Confirm Administered Dose 10 unit .ROUTE .STK-MED ONE Stop: 08/06/17 10:08 Oxytocin (Pitocin) Confirm Administered Dose 10 unit .ROUTE .STK-MED ONE Stop: 08/06/17 11:23 Phenylephrine HCl (Jose-Synephrine) Confirm Administered Dose 10 mg .ROUTE .STK- MED ONE Stop: 08/06/17 10:07 - Exam Wound/Incisions: Healing Well (Scant serous drainage) General: Alert, Oriented Neck: Supple Lungs: Clear to Auscultation, Normal Respiratory Effort Cardiovascular: Regular Rate, Regular Rhythm GI/Abdominal Exam: Soft, Non-Tender, No Organomegaly (With the exception of uterus at U -1), No Distention, No Abnormal Bruit, No Mass, Pelvis Stable, Other (Hypoactive bowel sounds) Extremities: Normal Inspection, Normal Range of Motion, Non-Tender, No Pedal Edema, Normal Capillary Refill, Pedal Edema (Trace to 1+) Skin: Warm, Dry, Intact Neurological: No New Focal Deficit Psy/Mental Status: Alert, Normal Affect, Normal Mood - Problem List & Annotations (1) 37 weeks gestation of SNOMED Code(s): 21477088 Code(s): Z3A.37 - 37 WEEKS GESTATION OF Status: Acute Current Visit: Yes (2) delivery, delivered, current hospitalization SNOMED Code(s): 617045011 Code(s): O82 - ENCOUNTER FOR DELIVERY WITHOUT INDICATION Status: Acute Current Visit: Yes (3) Seizure disorder during , delivered SNOMED Code(s): 283349827 Code(s): O99.354 - DISEASES OF THE NERVOUS SYSTEM COMPLICATING CHILDBIRTH; G40.909 - EPILEPSY, UNSP, NOT INTRACTABLE, WITHOUT STATUS EPILEPTICUS Status: Acute Current Visit: Yes (4) Gestational hypertension affecting fourth SNOMED Code(s): 22806131 Code(s): O13.9 - GESTATIONAL HTN W/O SIGNIFICANT PROTEINURIA, UNSP TRIMESTER ; O09.40 - SUPERVISION OF W GRAND MULTIPARITY, UNSP TRIMESTER Status : Acute Current Visit: Yes (5) Meconium stained amniotic fluid, delivered, current hospitalization SNOMED Code(s): 124056378 Code(s): O77.0 - LABOR AND DELIVERY COMPLICATED BY MECONIUM IN AMNIOTIC FLUID Status: Acute Current Visit: Yes - Problem List Review Problem List Initiated/Reviewed/Updated: No - My Orders Last 24 Hours: Active Orders 24 hr Category Date Time Status Ambulate [RC] PER UNIT ROUTINE Care 08/06/17 13:21 Active Antiembolic Devices [RC] .Routine Care 08/06/17 09:19 Inactive Antiembolic Devices [RC] PER UNIT ROUTINE Care 08/06/17 13:21 Active Communication Order [RC] ASDIRECTED Care 08/06/17 11:51 Inactive Communication Order [RC] PER UNIT ROUTINE Care 08/06/17 13:21 Active Communication Order [RC] PER UNIT ROUTINE Care 08/06/17 13:21 Active Cooling Warming Measures [RC] ASDIRECTED Care 08/06/17 11:51 Inactive Intake and Output [RC] Q4HR Care 08/06/17 13:21 Active May Shower [RC] PER UNIT ROUTINE Care 08/06/17 13:21 Active Notify Provider Intake and Out [RC] ASDIRECTED Care 08/06/17 13:21 Active Notify Provider [RC] ASDIRECTED Care 08/06/17 11:51 Inactive Oxygen Therapy [RC] ASDIRECTED Care 08/06/17 11:51 Inactive Pulse Oximetry [RC] ASDIRECTED Care 08/06/17 11:51 Inactive RT Incentive Spirometry [RC] Q2HWA Care 08/06/17 13:21 Active Urinary Catheter Removal [RC] Per Unit Routine Care 08/07/17 12:57 Active Vaccines to be Administered [RC] PER UNIT ROUTINE Care 08/06/17 09:33 Inactive Vital Signs [RC] Q15M Care 08/06/17 11:51 Inactive Vital Signs [RC] Q1HR Care 08/06/17 13:21 Active Clear Liquid Diet [DIET] Diet 08/06/17 Lunch Active Regular Diet [DIET] Diet 08/06/17 Dinner Active Acetaminophen [Tylenol] Med 08/06/17 13:21 Active 650 mg PO Q4H PRN Acetaminophen/oxyCODONE [Percocet 325-5 MG] Med 08/06/17 13:21 Active 2 tab PO Q4H PRN Docusate Sodium [Colace] Med 08/06/17 13:21 Active 100 mg PO Q12H PRN Ibuprofen [Motrin] Med 08/07/17 11:30 Active 600 mg PO Q6H PRN Labetalol [Normodyne] Med 08/06/17 21:00 Active 100 mg PO BID Lactated Ringers [Ringers, Lactated] 1,000 ml Med 08/06/17 22:15 Active IV ASDIRECTED Lanolin [Lansinoh HPA] Med 08/06/17 13:21 Active See Dose Instructions TOP ASDIRECTED PRN Naloxone [Narcan] Med 08/06/17 13:21 Active 0.1 mg IVPUSH SEECOMMENT PRN Ondansetron [Zofran] Med 08/06/17 13:21 Active 4 mg IV Q8H PRN Simethicone Med 08/06/17 13:21 Active 80 mg PO PCBED Sodium Chloride 0.9% [Saline Flush] Med 08/06/17 13:21 Active 10 ml FLUSH ASDIRECTED PRN diphenhydrAMINE [Benadryl] Med 08/06/17 13:21 Active 25 mg IVPUSH Q6H PRN ePHEDrine [ePHEDrine Sulfate] Med 08/06/17 13:21 Active 5 mg IVPUSH SEECOMMENT PRN levETIRAcetam [Keppra] Med 08/06/17 15:00 Active 500 mg PO TID Abdominal Binder [OM.PC] Per Unit Routine Ot 08/06/17 13:21 Ordered Assess Lochia [WOMSER] Per Unit Routine Ot 08/06/17 13:21 Ordered Assess Uterine Involution [WOMSER] Per Unit Routine Ot 08/06/17 13:21 Ordered Breast Pump [WOMSER] Per Unit Routine Ot 08/06/17 13:21 Ordered Convert IV to Saline Lock [OM.PC] Routine Ot 08/06/17 13:21 Ordered Medication Administration Instruction [OM.PC] Routine Ot 08/06/17 13:21 Ordered Peripheral IV Discontinue [OM.PC] Routine Ot 08/06/17 13:21 Ordered Sequential Compression Device [OM.PC] Per Unit Routine Ot 08/06/17 13:21 Ordered Resuscitation Status Routine Resus Stat 08/06/17 09:12 Ordered Medication Orders Acetaminophen (Tylenol) 650 mg PO Q4H PRN PRN Reason: mild pain or fever Diphenhydramine HCl (Benadryl) 25 mg IVPUSH Q6H PRN PRN Reason: Itching or Nausea Docusate Sodium (Colace) 100 mg PO Q12H PRN PRN Reason: Constipation Emollient Ointment (Lansinoh Hpa) 0 gm TOP ASDIRECTED PRN PRN Reason: Sore Nipples Ephedrine Sulfate (Ephedrine Sulfate) 5 mg IVPUSH SEECOMMENT PRN PRN Reason: Other Lactated Ringer's (Ringers, Lactated) 1,000 mls @ 125 mls/hr IV ASDIRECTED [facility] Last Admin: 08/06/17 22:47 Dose: 125 mls/hr Ibuprofen (Motrin) 600 mg PO Q6H PRN PRN Reason: mild pain or fever Labetalol HCl (Normodyne) 100 mg PO BID [facility] Last Admin: 08/07/17 08:20 Dose: 100 mg Admin: 08/06/17 21:07 Dose: 100 mg Levetiracetam (Keppra) 500 mg PO TID [facility] Last Admin: 08/07/17 09:04 Dose: 500 mg Admin: 08/06/17 22:07 Dose: 500 mg Admin: 08/06/17 15:10 Dose: 500 mg Naloxone HCl (Narcan) 0.1 mg IVPUSH SEECOMMENT PRN PRN Reason: Respiratory Depression Ondansetron HCl (Zofran) 4 mg IV Q8H PRN PRN Reason: Nausea/Vomiting Oxycodone/Acetaminophen (Percocet 325-5 Mg) 2 tab PO Q4H PRN PRN Reason: Pain (moderate 4-6) Last Admin: 08/07/17 08:20 Dose: 2 tab Admin: 08/07/17 01:36 Dose: 2 tab Admin: 08/06/17 20:01 Dose: 2 tab Admin: 08/06/17 14:11 Dose: 2 tab Simethicone (Simethicone) 80 mg PO PCBED [facility] Last Admin: 08/07/17 08:20 Dose: 80 mg Admin: 08/06/17 21:08 Dose: 80 mg Admin: 08/06/17 18:23 Dose: 80 mg Admin: 08/06/17 13:32 Dose: 80 mg Sodium Chloride (Saline Flush) 10 ml FLUSH ASDIRECTED PRN PRN Reason: Keep Vein Open - Plan Plan (Free Text/Narrative):: Probably dismiss tomorrow.
[2017-08-07] MEDS: Ibuprofen 600 MG Tab PO PRN ×2 (11:52→18:24)
[2017-08-08] MEDS: Acetaminophen/oxyCODONE 325-5 MG Tab PO PRN ×4 (03:03→20:34)
[2017-08-08] MEDS ORDERED: Magnesium Hydroxide 400 MG/5 ML Susp 30 ML Cup PO PRN (08:24)
[2017-08-08] MEDS ORDERED: Bisacodyl 10 MG Supp RECTAL PRN (08:24)
--- NOTE | 2017-08-08 08:24 | PCM.SURGPN ---
- General Info Date of Service: 08/08/17 Date of Surgery/Procedure: 08/06/17 POD#: 2 Post-Op Diagnosis: Status post /delivery. Functional Status: Reports: Pain Controlled - Review of Systems General: Reports: No Symptoms HEENT: Reports: No Symptoms Pulmonary: Reports: No Symptoms Cardiovascular: Reports: No Symptoms Gastrointestinal: Reports: Other (Not passing gas no bowel movement as yet, decreased appetite) Genitourinary: Reports: No Symptoms Musculoskeletal: Reports: Neck Pain, Shoulder Pain, Back Pain Skin: Reports: No Symptoms Neurological: Reports: No Symptoms (Reflexes 2+ right patellofemoral 3+ left patellar) Psychiatric: Reports: No Symptoms - Patient Data Vitals - Most Recent: Last Vital Signs Temp 97.5 F 08/08/17 03:00 Pulse 95 08/08/17 03:00 Resp 14 08/08/17 03:00 BP 134/71 08/08/17 03:00 Pulse Ox 98 08/08/17 03:00 Weight - Most Recent: 227 lb 11.2 oz I&O - Last 24 Hours: Intake & Output 08/07/17 08/08/17 08/08/17 22:59 06:59 14:59 Intake Total 0 Output Total 600 Balance -600 Med Orders - Current: Current Medications Acetaminophen (Tylenol) 650 mg PO Q4H PRN PRN Reason: mild pain or fever Diphenhydramine HCl (Benadryl) 25 mg IVPUSH Q6H PRN PRN Reason: Itching or Nausea Docusate Sodium (Colace) 100 mg PO Q12H PRN PRN Reason: Constipation Last Admin: 08/07/17 14:27 Dose: 100 mg Emollient Ointment (Lansinoh Hpa) 0 gm TOP ASDIRECTED PRN PRN Reason: Sore Nipples Ephedrine Sulfate (Ephedrine Sulfate) 5 mg IVPUSH SEECOMMENT PRN PRN Reason: Other Lactated Ringer's (Ringers, Lactated) 1,000 mls @ 125 mls/hr IV ASDIRECTED [facility] Last Admin: 08/06/17 22:47 Dose: 125 mls/hr Ibuprofen (Motrin) 600 mg PO Q6H PRN PRN Reason: mild pain or fever Last Admin: 08/07/17 18:24 Dose: 600 mg Levetiracetam (Keppra) 500 mg PO TID [facility] Last Admin: 08/07/17 21:25 Dose: 500 mg Naloxone HCl (Narcan) 0.1 mg IVPUSH SEECOMMENT PRN PRN Reason: Respiratory Depression Ondansetron HCl (Zofran) 4 mg IV Q8H PRN PRN Reason: Nausea/Vomiting Oxycodone/Acetaminophen (Percocet 325-5 Mg) 2 tab PO Q4H PRN PRN Reason: Pain (moderate 4-6) Last Admin: 08/08/17 08:00 Dose: 2 tab Simethicone (Simethicone) 80 mg PO PCBED [facility] Last Admin: 08/07/17 21:25 Dose: 80 mg Sodium Chloride (Saline Flush) 10 ml FLUSH ASDIRECTED PRN PRN Reason: Keep Vein Open Discontinued Medications Bupivacaine HCl (Marcaine 0.5%) Confirm Administered Dose 30 ml .ROUTE .STK-MED ONE Stop: 08/06/17 10:00 Last Admin: 08/06/17 11:35 Dose: 20 ml Cefazolin Sodium (Ancef) Confirm Administered Dose 2 gm .ROUTE .STK-MED ONE Stop: 08/06/17 10:07 Citric Acid/Sodium Citrate (Bicitra Solution) 30 ml PO ONETIME ONE Stop: 08/06/17 09:31 Last Admin: 08/06/17 09:31 Dose: 30 ml Diphenhydramine HCl (Benadryl) 25 mg IVPUSH Q6H PRN PRN Reason: Itching Diphtheria/Tetanus/Acell Pertussis (Adacel) 0.5 ml IM .ONCE ONE Stop: 08/06/17 13:01 Fentanyl (Sublimaze) Confirm Administered Dose 100 mcg .ROUTE .STK-MED ONE Stop: 08/06/17 11:19 Fentanyl (Sublimaze) 50 mcg IVPUSH Q5M PRN PRN Reason: PAIN Stop: 08/06/17 18:00 Fentanyl (Sublimaze) Confirm Administered Dose 100 mcg .ROUTE .STK-MED ONE Stop: 08/06/17 11:56 Last Admin: 08/07/17 09:52 Dose: Not Given Cefazolin Sodium/Dextrose 2 gm (/ Premix) 50 mls @ 100 mls/hr IV ONETIME ONE Stop: 08/06/17 10:29 Last Admin: 08/07/17 09:51 Dose: Not Given Lactated Ringer's (Ringers, Lactated) 1,000 mls @ 125 mls/hr IV ASDIRECTED [facility] Last Admin: 08/06/17 09:59 Dose: 125 mls/hr Oxytocin/Lactated Ringer's (Pitocin In Lr 10 Units/1,000 Ml) 10 unit in 1,000 mls @ 500 mls/hr IV ASDIRECTED [facility] Lactated Ringer's (Ringers, Lactated) Confirm Administered Dose 1,000 mls @ as directed .ROUTE .STK-MED ONE Stop: 08/06/17 10:26 Dextrose/Lactated Ringer's (Dextrose 5%-Lactated Ringers) 1,000 mls @ 125 mls/ hr IV ASDIRECTED [facility] Stop: 08/06/17 21:20 Last Admin: 08/06/17 13:32 Dose: 125 mls/hr Lactated Ringer's (Ringers, Lactated) 500 mls @ 500 mls/hr IV ASDIRECTED [facility] Stop: 08/06/17 20:14 Last Admin: 08/06/17 19:28 Dose: 500 mls/hr Lactated Ringer's (Ringers, Lactated) 500 mls @ 250 mls/hr IV ASDIRECTED [facility] Stop: 08/06/17 22:14 Last Admin: 08/06/17 20:49 Dose: 250 mls/hr Ketorolac Tromethamine (Toradol) Confirm Administered Dose 30 mg .ROUTE .STK- MED ONE Stop: 08/06/17 11:52 Ketorolac Tromethamine (Toradol) 30 mg IVPUSH Q6H [facility] Stop: 08/07/17 05:31 Last Admin: 08/07/17 05:57 Dose: 30 mg Labetalol HCl (Normodyne) 100 mg PO BID [facility] Last Admin: 08/07/17 08:20 Dose: 100 mg Metoclopramide HCl (Reglan) 10 mg IVPUSH ONETIME ONE Stop: 08/06/17 09:31 Last Admin: 08/06/17 09:31 Dose: 10 mg Morphine Sulfate (Duramorph Pf) Confirm Administered Dose 10 mg .ROUTE .STK-MED ONE Stop: 08/06/17 10:07 Oxytocin (Pitocin) Confirm Administered Dose 10 unit .ROUTE .STK-MED ONE Stop: 08/06/17 10:08 Oxytocin (Pitocin) Confirm Administered Dose 10 unit .ROUTE .STK-MED ONE Stop: 08/06/17 11:23 Phenylephrine HCl (Jose-Synephrine) Confirm Administered Dose 10 mg .ROUTE .STK- MED ONE Stop: 08/06/17 10:07 - Exam Wound/Incisions: Healing Well General: Alert, Oriented HEENT: Mucous Membr. Moist/[place] Neck: Supple Lungs: Clear to Auscultation, Normal Respiratory Effort Cardiovascular: Regular Rate, Regular Rhythm GI/Abdominal Exam: Abnormal Bowel Sounds (Hypoactive but present) Extremities: Normal Inspection, Normal Range of Motion, Non-Tender, No Pedal Edema, Normal Capillary Refill, Pedal Edema (And pretibial 1+), Other ( has pedal edema 1+) Skin: Warm, Dry, Intact Neurological: No New Focal Deficit Psy/Mental Status: Alert, Normal Affect, Normal Mood - Problem List & Annotations (1) 37 weeks gestation of SNOMED Code(s): 31163386 Code(s): Z3A.37 - 37 WEEKS GESTATION OF Status: Acute Current Visit: Yes (2) delivery, delivered, current hospitalization SNOMED Code(s): 952648171 Code(s): O82 - ENCOUNTER FOR DELIVERY WITHOUT INDICATION Status: Acute Current Visit: Yes (3) Seizure disorder during , delivered SNOMED Code(s): 998387790 Code(s): O99.354 - DISEASES OF THE NERVOUS SYSTEM COMPLICATING CHILDBIRTH; G40.909 - EPILEPSY, UNSP, NOT INTRACTABLE, WITHOUT STATUS EPILEPTICUS Status: Acute Current Visit: Yes (4) Gestational hypertension affecting fourth SNOMED Code(s): 76427636 Code(s): O13.9 - GESTATIONAL HTN W/O SIGNIFICANT PROTEINURIA, UNSP TRIMESTER ; O09.40 - SUPERVISION OF W GRAND MULTIPARITY, UNSP TRIMESTER Status : Acute Current Visit: Yes (5) Meconium stained amniotic fluid, delivered, current hospitalization SNOMED Code(s): 403328666 Code(s): O77.0 - LABOR AND DELIVERY COMPLICATED BY MECONIUM IN AMNIOTIC FLUID Status: Acute Current Visit: Yes - Problem List Review Problem List Initiated/Reviewed/Updated: No - My Orders Last 24 Hours: Active Orders 24 hr Category Date Time Status Ibuprofen [Motrin] Med 08/07/17 11:30 Active 600 mg PO Q6H PRN Medication Orders Acetaminophen (Tylenol) 650 mg PO Q4H PRN PRN Reason: mild pain or fever Diphenhydramine HCl (Benadryl) 25 mg IVPUSH Q6H PRN PRN Reason: Itching or Nausea Docusate Sodium (Colace) 100 mg PO Q12H PRN PRN Reason: Constipation Last Admin: 08/07/17 14:27 Dose: 100 mg Emollient Ointment (Lansinoh Hpa) 0 gm TOP ASDIRECTED PRN PRN Reason: Sore Nipples Ephedrine Sulfate (Ephedrine Sulfate) 5 mg IVPUSH SEECOMMENT PRN PRN Reason: Other Lactated Ringer's (Ringers, Lactated) 1,000 mls @ 125 mls/hr IV ASDIRECTED [facility] Last Admin: 08/06/17 22:47 Dose: 125 mls/hr Ibuprofen (Motrin) 600 mg PO Q6H PRN PRN Reason: mild pain or fever Last Admin: 08/07/17 18:24 Dose: 600 mg Admin: 08/07/17 11:52 Dose: 600 mg Levetiracetam (Keppra) 500 mg PO TID [facility] Last Admin: 08/07/17 21:25 Dose: 500 mg Admin: 08/07/17 16:13 Dose: 500 mg Admin: 08/07/17 09:04 Dose: 500 mg Admin: 08/06/17 22:07 Dose: 500 mg Admin: 08/06/17 15:10 Dose: 500 mg Naloxone HCl (Narcan) 0.1 mg IVPUSH SEECOMMENT PRN PRN Reason: Respiratory Depression Ondansetron HCl (Zofran) 4 mg IV Q8H PRN PRN Reason: Nausea/Vomiting Oxycodone/Acetaminophen (Percocet 325-5 Mg) 2 tab PO Q4H PRN PRN Reason: Pain (moderate 4-6) Last Admin: 08/08/17 08:00 Dose: 2 tab Admin: 08/08/17 03:03 Dose: 2 tab Admin: 08/07/17 23:14 Dose: 2 tab Admin: 08/07/17 19:07 Dose: 2 tab Admin: 08/07/17 14:25 Dose: 2 tab Admin: 08/07/17 08:20 Dose: 2 tab Admin: 08/07/17 01:36 Dose: 2 tab Admin: 08/06/17 20:01 Dose: 2 tab Admin: 08/06/17 14:11 Dose: 2 tab Simethicone (Simethicone) 80 mg PO PCBED [facility] Last Admin: 08/07/17 21:25 Dose: 80 mg Admin: 08/07/17 18:24 Dose: 80 mg Admin: 08/07/17 12:30 Dose: 80 mg Admin: 08/07/17 08:20 Dose: 80 mg Admin: 08/06/17 21:08 Dose: 80 mg Admin: 08/06/17 18:23 Dose: 80 mg Admin: 08/06/17 13:32 Dose: 80 mg Sodium Chloride (Saline Flush) 10 ml FLUSH ASDIRECTED PRN PRN Reason: Keep Vein Open - Plan Plan (Free Text/Narrative):: Patient not ready for dismissal today needs to ambulate will give medications to increase bowel function.
[2017-08-08] MEDS ORDERED: Cyclobenzaprine 10 MG Tab PO PRN (08:25)
[2017-08-08] MEDS: Simethicone 80 MG Tab.Chew PO SCH ×4 (09:30→21:26)
[2017-08-08] MEDS: levETIRAcetam 500 MG Tab PO SCH ×3 (09:31→20:34)
[2017-08-08] MEDS: Ibuprofen 600 MG Tab PO PRN ×2 (10:48→18:36)
[2017-08-09] MEDS: Acetaminophen/oxyCODONE 325-5 MG Tab PO PRN ×2 (01:42→08:38)
[2017-08-09] MEDS: Ibuprofen 600 MG Tab PO PRN ×2 (04:02→11:25)
[2017-08-09] MEDS: Simethicone 80 MG Tab.Chew PO SCH ×2 (08:46→14:09)
[2017-08-09] MEDS: levETIRAcetam 500 MG Tab PO SCH (08:46)
[2017-08-09 09:22] VITALS: BP 150/92
--- NOTE | 2017-08-09 09:58 | PCM.DCSUM1 ---
Discharge Summary - Hospital Course Free Text/Narrative:: [facility] Post-Op/Procedure Note Patient Name: LEONEL TAN Date of : 85 Patient Status: Inpatient Attending Provider: Obie Chang Date: 08/06/17 12:40 Initialization Date: 08/06/17 12:40 Addendum entered and electronically signed by Obie Chang MD 08/07/17 09 :34: 1 application of Surgicel applied to the lower uterine segment on the left side to help control bleeding. Original Note: - General Post-Op/Procedure Note Date of Surgery/Procedure: 08/06/17 Operative Procedure(s): Repeat low segment transverse Pre Op Diagnosis: 37 weeks plus estimated gestational age, gestational hypertension, seizure disorder, repeat section contractions every 3 minutes and strong. Post-Op Diagnosis: Same plus meconium-stained amnionic fluid Anesthesia Technique: Spinal Primary Surgeon: Obie Chang Secondary Surgeon: Kam Bliss Anesthesia Provider: Luis Stinson [employer] Instructor: Patricia Madison) Fluid Replacement, Intraop: 3,500 Output, Urine Amount: 250 EBL in mLs: 625 Drain/Tube Comments:: Dupont Complications: None Condition: Good Free Text/Narrative:: Patient was transported to the operating room and placed under spinal anesthesia in the supine position with wedge under the right hip and right flank Dupont catheter coursing gravity drainage under the right knee. SCDs in place and functioning. Ancef 2 g given intravenously. Prepared and draped in a sterile fashion. Timeout performed confirming name date of and procedure as repeat section. Adequate level of anesthesia was confirmed injecting 20 mL of 0.5% Marcaine in the area of the planned incision after the arrived in the operating room the incision was made and care was sharp section to into the anterior fascia peritoneal cavity was entered with some difficulty because adhesions to the anterior abdominal wall which were subsequently lysed with blunt and sharp dissection. Bladder flap created pushed caudad low segment transverse performed meconium-stained amnionic fluid upon entry into the amnionic cavity the female delivered at 1101 hrs. on Saturday08/06/17 Dr. Matamoros wheelchair rental clerk in attendance Apgars 5/7/9 at one and 5 and 10 minutes respectively weight 4 lbs. 9 oz. no nuchal cord. Cord blood was collected from three-vessel cord placenta was removed manually. Endometrial cavity inspected no membranes are remnants of placenta left. Cervical patency was assured. Sponge needle pack asthma sharp count correct times one and the uterine incision closed in 2 layers with running locking 0 Monocryl for the first layer horizontal imbricating modified Lembert suture for the second layer with 3 additional [id number] sutures to control hemostasis on the left side of the incision. The remaining omental adhesions were lysed from the anterior abdominal wall both tubes and ovaries appeared normal the clots were cleaned from the gutters and cul-de-sac uterus replaced into abdominal cavity the uterine incision reinspected no bleeding sponge needle pack and sharp count abdominal cavity was closed with #1 PDS for the anterior fascia irrigation was carried out and the skin was closed with 3-0 Monocryl subcuticular with Abhilash needle Dermabond Preneo. Clots were cleaned from the vagina. Patient transported postanesthesia care unit in satisfactory condition no blood transfusions required. HPI Initial Comments: [facility] Post-Op/Procedure Note Patient Name: LEONEL TAN Date of : 85 Patient Status: Inpatient Attending Provider: Obie Chang Date: 08/06/17 12:40 Initialization Date: 08/06/17 12:40 Addendum entered and electronically signed by Obie Chang MD 08/07/17 09 :34: 1 application of Surgicel applied to the lower uterine segment on the left side to help control bleeding. Original Note: - General Post-Op/Procedure Note Date of Surgery/Procedure: 08/06/17 Operative Procedure(s): Repeat low segment transverse Pre Op Diagnosis: 37 weeks plus estimated gestational age, gestational hypertension, seizure disorder, repeat section contractions every 3 minutes and strong. Post-Op Diagnosis: Same plus meconium-stained amnionic fluid Anesthesia Technique: Spinal Primary Surgeon: Obie Chang Secondary Surgeon: Kam Bliss Anesthesia Provider: Luis Stinson [employer] Instructor: Patricia Madison (YVONNE) Fluid Replacement, Intraop: 3,500 Output, Urine Amount: 250 EBL in mLs: 625 Drain/Tube Comments:: Dupont Complications: None Condition: Good Free Text/Narrative:: Patient was transported to the operating room and placed under spinal anesthesia in the supine position with wedge under the right hip and right flank Dupont catheter coursing gravity drainage under the right knee. SCDs in place and functioning. Ancef 2 g given intravenously. Prepared and draped in a sterile fashion. Timeout performed confirming name date of and procedure as repeat section. Adequate level of anesthesia was confirmed injecting 20 mL of 0.5% Marcaine in the area of the planned incision after the arrived in the operating room the incision was made and care was sharp section to into the anterior fascia peritoneal cavity was entered with some difficulty because adhesions to the anterior abdominal wall which were subsequently lysed with blunt and sharp dissection. Bladder flap created pushed caudad low segment transverse performed meconium-stained amnionic fluid upon entry into the amnionic cavity the female delivered at 1101 hrs. on Saturday08/06/17 Dr. Matamoros wheelchair rental clerk in attendance Apgars 5/7/9 at one and 5 and 10 minutes respectively weight 4 lbs. 9 oz. no nuchal cord. Cord blood was collected from three-vessel cord placenta was removed manually. Endometrial cavity inspected no membranes are remnants of placenta left. Cervical patency was assured. Sponge needle pack asthma sharp count correct times one and the uterine incision closed in 2 layers with running locking 0 Monocryl for the first layer horizontal imbricating modified Lembert suture for the second layer with 3 additional [id number] sutures to control hemostasis on the left side of the incision. The remaining omental adhesions were lysed from the anterior abdominal wall both tubes and ovaries appeared normal the clots were cleaned from the gutters and cul-de-sac uterus replaced into abdominal cavity the uterine incision reinspected no bleeding sponge needle pack and sharp count abdominal cavity was closed with #1 PDS for the anterior fascia irrigation was carried out and the skin was closed with 3-0 Monocryl subcuticular with Abhilash needle Dermabond Preneo. Clots were cleaned from the vagina. Patient transported postanesthesia care unit in satisfactory condition no blood transfusions required. Brief History: [facility] . Post-Op/Procedure Note. Patient Name: LEONEL TAN JOMedical Record Number: [id number]. Date of : Patient Status: Inpatient. Attending Provider: Obie Changount Number: [id number]. Date: 08/06/17 12:40Initialization Date: 08/06/17 12:40. Addendum entered and electronically signed by Obie Chang MD 08/07/17 09:34: 1 application of Surgicel applied to the lower uterine segment on the left side to help control bleeding. Original Note: - General Post-Op/ Procedure Note. Date of Surgery/Procedure: 08/06/17. Operative Procedure(s): Repeat low segment transverse . Pre Op Diagnosis: 37 weeks plus estimated gestational age, gestational hypertension, seizure disorder, repeat section contractions every 3 minutes and strong. Post-Op Diagnosis: Same plus meconium-stained amnionic fluid. Anesthesia Technique: Spinal. Primary Surgeon: Obie Chang. Secondary Surgeon: Kam Bliss. Anesthesia Provider: Luis Stinson. [employer] Instructor: Patricia Madison ([facility]). Fluid Replacement, Intraop: 3,500. Output, Urine Amount: 250. EBL in mLs: 625. Drain/Tube Comments:: Dupont. Complications: None. Condition: Good. Free Text/ Narrative:: Patient was transported to the operating room and placed under spinal anesthesia in the supine position with wedge under the right hip and right flank Dupont catheter coursing gravity drainage under the right knee. SCDs in place and functioning. Ancef 2 g given intravenously. Prepared and draped in a sterile fashion. Timeout performed confirming name date of and procedure as repeat section. Adequate level of anesthesia was confirmed injecting 20 mL of 0.5% Marcaine in the area of the planned incision after the arrived in the operating room the incision was made and care was sharp section to into the anterior fascia peritoneal cavity was entered with some difficulty because adhesions to the anterior abdominal wall which were subsequently lysed with blunt and sharp dissection. Bladder flap created pushed caudad low segment transverse performed meconium-stained amnionic fluid upon entry into the amnionic cavity the female delivered at 1101 hrs. on Saturday08/06/17 Dr[address] Matamoros wheelchair rental clerk in attendance Apgars 5/7/9 at one and 5 and 10 minutes respectively weight 4 lbs. 9 oz. no nuchal cord. Cord blood was collected from three-vessel cord placenta was removed manually. Endometrial cavity inspected no membranes are remnants of placenta left. Cervical patency was assured. Sponge needle pack asthma sharp count correct times one and the uterine incision closed in 2 layers with running locking 0 Monocryl for the first layer horizontal imbricating modified Lembert suture for the second layer with 3 additional [id number] sutures to control hemostasis on the left side of the incision. The remaining omental adhesions were lysed from the anterior abdominal wall both tubes and ovaries appeared normal the clots were cleaned from the gutters and cul-de-sac uterus replaced into abdominal cavity the uterine incision reinspected no bleeding sponge needle pack and sharp count abdominal cavity was closed with #1 PDS for the anterior fascia irrigation was carried out and the skin was closed with 3-0 Monocryl subcuticular with Abhilash needle Dermabond Preneo. Clots were cleaned from the vagina. Patient transported postanesthesia care unit in satisfactory condition no blood transfusions required. - Discharge Data Discharge Date: 08/09/17 Discharge Disposition: Home, Self-Care 01 Condition: Good - Discharge Diagnosis/Problem(s) (1) 37 weeks gestation of SNOMED Code(s): 57261065 ICD Code: Z3A.37 - 37 WEEKS GESTATION OF Status: Acute Current Visit: Yes (2) delivery, delivered, current hospitalization SNOMED Code(s): 962966061 ICD Code: O82 - ENCOUNTER FOR DELIVERY WITHOUT INDICATION Status: Acute Current Visit: Yes (3) Seizure disorder during , delivered SNOMED Code(s): 801890485 ICD Code: O99.354 - DISEASES OF THE NERVOUS SYSTEM COMPLICATING CHILDBIRTH; G40.909 - EPILEPSY, UNSP, NOT INTRACTABLE, WITHOUT STATUS EPILEPTICUS Status: Acute Current Visit: Yes (4) Gestational hypertension affecting fourth SNOMED Code(s): 57708631 ICD Code: O13.9 - GESTATIONAL HTN W/O SIGNIFICANT PROTEINURIA, UNSP TRIMESTER ; O09.40 - SUPERVISION OF W GRAND MULTIPARITY, UNSP TRIMESTER Status : Acute Current Visit: Yes (5) Meconium stained amniotic fluid, delivered, current hospitalization SNOMED Code(s): 985655538 ICD Code: O77.0 - LABOR AND DELIVERY COMPLICATED BY MECONIUM IN AMNIOTIC FLUID Status: Acute Current Visit: Yes - Patient Summary/Data Operative Procedure(s) Performed: Repeat low segment transverse Complications: None - Patient Instructions Diet: Regular Diet as Tolerated Driving: Do Not Drive (For 48 hours or for 48 hours after last dose of Percocet) Showering/Bathing: May Shower, No Tub Bathing/Swimming (For 6 weeks) Wound/Incision Care: Keep Operative Site/Wound Site Clean and Dry Notify Provider of: Fever, Increased Pain, Swelling and Redness, Drainage, Nausea and/or Vomiting - Discharge Plan Home Medications: Home Meds Albuterol Sulfate [Proair Hfa] 8.5 gm IH ASDIRECTED 07/31/17 [History] Labetalol HCl [Labetalol] 100 mg PO TID 07/31/17 [History] Pnv No.122/Iron/Folic Acid [ Multi Tablet] 1 each PO DAILY 07/31/17 [ History] Acetaminophen [Tylenol] 650 mg PO Q6H PRN tablet 08/09/17 [Rx] Acetaminophen/oxyCODONE [Percocet 325-5 MG] 1 tab PO Q6H PRN #25 tablet [Rx] Docusate Sodium [Colace] 100 mg PO Q12H PRN cap 08/09/17 [Rx] Ibuprofen [IJD: Ibuprofen] 600 mg PO Q6H PRN tablet 08/09/17 [Rx] Lanolin [Lansinoh HPA] 1 applic TOP ASDIRECTED PRN tube 08/09/17 [Rx] Simethicone 80 mg PO PCBED tab.chew 08/09/17 [Rx] levETIRAcetam [Keppra] 500 mg PO TID tablet 08/09/17 [Rx] Referrals: Obie Chang MD [Primary Care Provider] - (2 weeks) - Discharge Summary/Plan Comment DC Time >30 min.: No - Patient Data Vitals - Most Recent: Last Vital Signs Temp 97.2 F 08/09/17 08:45 Pulse 70 08/09/17 08:45 Resp 14 08/09/17 08:45 BP 150/92 H 08/09/17 08:45 Pulse Ox 100 08/09/17 08:45 Weight - Most Recent: 227 lb 11.2 oz I&O - Last 24 hours: Intake & Output 0908/09/17 08/09/17 22:59 06:59 14:59 Intake Total 0 Balance 0 Med Orders - Current: Current Medications Acetaminophen (Tylenol) 650 mg PO Q4H PRN PRN Reason: mild pain or fever Bisacodyl (Dulcolax) 10 mg RECTAL BID PRN PRN Reason: Constipation Last Admin: 08/08/17 09:32 Dose: 10 mg Cyclobenzaprine HCl (Flexeril) 10 mg PO TID PRN PRN Reason: Muscle Spasm Last Admin: 08/08/17 09:01 Dose: 10 mg Diphenhydramine HCl (Benadryl) 25 mg IVPUSH Q6H PRN PRN Reason: Itching or Nausea Docusate Sodium (Colace) 100 mg PO Q12H PRN PRN Reason: Constipation Last Admin: 08/07/17 14:27 Dose: 100 mg Emollient Ointment (Lansinoh Hpa) 0 gm TOP ASDIRECTED PRN PRN Reason: Sore Nipples Ephedrine Sulfate (Ephedrine Sulfate) 5 mg IVPUSH SEECOMMENT PRN PRN Reason: Other Lactated Ringer's (Ringers, Lactated) 1,000 mls @ 125 mls/hr IV ASDIRECTED [facility] Last Admin: 08/06/17 22:47 Dose: 125 mls/hr Ibuprofen (Motrin) 600 mg PO Q6H PRN PRN Reason: mild pain or fever Last Admin: 08/09/17 04:02 Dose: 600 mg Levetiracetam (Keppra) 500 mg PO TID [facility] Last Admin: 08/09/17 08:46 Dose: 500 mg Magnesium Hydroxide (Milk Of Magnesia) 30 ml PO BID PRN PRN Reason: Constipation Last Admin: 08/08/17 09:28 Dose: 30 ml Naloxone HCl (Narcan) 0.1 mg IVPUSH SEECOMMENT PRN PRN Reason: Respiratory Depression Ondansetron HCl (Zofran) 4 mg IV Q8H PRN PRN Reason: Nausea/Vomiting Oxycodone/Acetaminophen (Percocet 325-5 Mg) 2 tab PO Q4H PRN PRN Reason: Pain (moderate 4-6) Last Admin: 08/09/17 08:38 Dose: 2 tab Simethicone (Simethicone) 80 mg PO PCBED [facility] Last Admin: 08/09/17 08:46 Dose: 80 mg Sodium Chloride (Saline Flush) 10 ml FLUSH ASDIRECTED PRN PRN Reason: Keep Vein Open Discontinued Medications Bupivacaine HCl (Marcaine 0.5%) Confirm Administered Dose 30 ml .ROUTE .STK-MED ONE Stop: 08/06/17 10:00 Last Admin: 08/06/17 11:35 Dose: 20 ml Cefazolin Sodium (Ancef) Confirm Administered Dose 2 gm .ROUTE .STK-MED ONE Stop: 08/06/17 10:07 Citric Acid/Sodium Citrate (Bicitra Solution) 30 ml PO ONETIME ONE Stop: 08/06/17 09:31 Last Admin: 08/06/17 09:31 Dose: 30 ml Diphenhydramine HCl (Benadryl) 25 mg IVPUSH Q6H PRN PRN Reason: Itching Diphtheria/Tetanus/Acell Pertussis (Adacel) 0.5 ml IM .ONCE ONE Stop: 08/06/17 13:01 Last Admin: 08/09/17 05:31 Dose: 0.5 ml Fentanyl (Sublimaze) Confirm Administered Dose 100 mcg .ROUTE .STK-MED ONE Stop: 08/06/17 11:19 Fentanyl (Sublimaze) 50 mcg IVPUSH Q5M PRN PRN Reason: PAIN Stop: 08/06/17 18:00 Fentanyl (Sublimaze) Confirm Administered Dose 100 mcg .ROUTE .STK-MED ONE Stop: 08/06/17 11:56 Last Admin: 08/07/17 09:52 Dose: Not Given Cefazolin Sodium/Dextrose 2 gm (/ Premix) 50 mls @ 100 mls/hr IV ONETIME ONE Stop: 08/06/17 10:29 Last Admin: 08/07/17 09:51 Dose: Not Given Lactated Ringer's (Ringers, Lactated) 1,000 mls [facility] 125 [facility] Admin: 08/06/17 09:59 Dose: 125 mls/hr Oxytocin/Lactated Ringer's (Pitocin In Lr 10 Units/1,000 Ml) 10 unit in 1,000 mls @ 500 mls[facility] Lactated Ringer's (Ringers, Lactated) Confirm Administered Dose 1,000 mls @ as directed .ROUTE .STK-MED ONE Stop: 08/06/17 10:26 Dextrose/Lactated Ringer's (Dextrose 5%-Lactated Ringers) 1,000 mls @ 125 mls/ hr IV ASDIRECTED [facility] Stop: 08/06/17 21:20 Last Admin: 08/06/17 13:32 Dose: 125 mls/hr Lactated Ringer's (Ringers, Lactated) 500 mls @ 500 mls/hr IV ASDIRECTED [facility] Stop: 08/06/17 20:14 Last Admin: 08/06/17 19:28 Dose: 500 mls/hr Lactated Ringer's (Ringers, Lactated) 500 mls @ 250 mls/hr IV ASDIRECTED [facility] Stop: 08/06/17 22:14 Last Admin: 08/06/17 20:49 Dose: 250 mls/hr Ketorolac Tromethamine (Toradol) Confirm Administered Dose 30 mg .ROUTE .STK- MED ONE Stop: 08/06/17 11:52 Ketorolac Tromethamine (Toradol) 30 mg IVPUSH Q6H [facility] Stop: 08/07/17 05:31 Last Admin: 08/07/17 05:57 Dose: 30 mg Labetalol HCl (Normodyne) 100 mg PO BID [facility] Last Admin: 08/07/17 08:20 Dose: 100 mg Metoclopramide HCl (Reglan) 10 mg IVPUSH ONETIME ONE Stop: 08/06/17 09:31 Last Admin: 08/06/17 09:31 Dose: 10 mg Morphine Sulfate (Duramorph Pf) Confirm Administered Dose 10 mg .ROUTE .STK-MED ONE Stop: 08/06/17 10:07 Oxytocin (Pitocin) Confirm Administered Dose 10 unit .ROUTE .STK-MED ONE Stop: 08/06/17 10:08 Oxytocin (Pitocin) Confirm Administered Dose 10 unit .ROUTE .STK-MED ONE Stop: 08/06/17 11:23 Phenylephrine HCl (Jose-Synephrine) Confirm Administered Dose 10 mg .ROUTE .STK- MED ONE Stop: 08/06/17 10:07 *Q Meaningful Use (DIS) - VTE *Q VTE Criteria *Q: - Stroke *Q Stroke Criteria *Q: - AMI *Q AMI Criteria *Q:
== END 2017-08-09 12:15 | disposition home or self-care (01) | DRG 765 ==
LOC: JD.OB 08:58 → JD.OBCHECK 08:58 → JD.OB 09:12
PROVIDERS: ADMIT Obstetrics & Gynecology; ATTEND Obstetrics & Gynecology
PROC: 10D00Z1 Extraction of Products of Conception, Low, Open Approach (ICD-10-PCS; principal; 2017-08-06)
DX: O75.89 Other specified complications of labor and delivery (principal); O99.354 Diseases of the nervous system complicating childbirth; Z3A.37 37 weeks gestation of pregnancy; Z37.0 Single live birth; G40.909 Epilepsy, unspecified, not intractable, without status epilepticus; O13.4 Gestational [pregnancy-induced] hypertension without significant proteinuria, complicating childbirth; Z88.6 Allergy status to analgesic agent; Z91.040 Latex allergy status; Z79.899 Other long term (current) drug therapy; O99.344 Other mental disorders complicating childbirth; Z87.891 Personal history of nicotine dependence; O34.211 Maternal care for low transverse scar from previous cesarean delivery; N85.8 Other specified noninflammatory disorders of uterus; O77.0 Labor and delivery complicated by meconium in amniotic fluid
CPT/HCPCS: 01961; 36415; 85025; 86850; 86900; 86901; 90686; 90715; A9270-GY; G0008; J0690; J1885; J2270; J2370; J2590; J2765; J3010; J7042; J7120

== ENCOUNTER 2017-10-03 23:31 | Emergency (ER) | payer MEDICAID, OTHER ==
[2017-10-03 23:40] VITALS: BP 111/79
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
--- NOTE | 2017-10-07 16:02 | CR ---
Left hand: Two views of the left hand were obtained. Comparison: No prior hand exam. Joint spaces are preserved. No fracture, dislocation or other bony abnormality is seen. Impression: 1. No abnormality is identified on two-view left hand exam. Diagnostic code #1
== END 2017-10-04 02:34 | disposition home or self-care (01) ==
LOC: JD.ED 23:31
DX: S60.222A Contusion of left hand, initial encounter (principal); T22.00XA Burn of unspecified degree of shoulder and upper limb, except wrist and hand, unspecified site, initial encounter; Z91.040 Latex allergy status; Z87.891 Personal history of nicotine dependence; V89.2XXA Person injured in unspecified motor-vehicle accident, traffic, initial encounter
CPT/HCPCS: 73120-26-LT; 73120-LT; 99283; 99284

== ENCOUNTER 2018-05-04 13:50 | Emergency (ER) | payer MEDICAID ==
[2018-05-04 14:23] VITALS: BP 144/98
--- NOTE | 2018-05-04 14:40 | EDM.PDOC ---
ED HPI GENERAL MEDICAL PROBLEM - General Chief Complaint: Abdominal Pain Stated Complaint: PELVIC PAIN Time Seen by Provider: 05/04/18 14:39 Source of Information: Reports: Patient History Limitations: Reports: No Limitations - History of Present Illness INITIAL COMMENTS - FREE TEXT/NARRATIVE: Saima is a 32yo female , presents ambulatory to ED with complaints of left sided pelvic pain. The pain woke her up at around 6am and is progressively worsening, left sided only. She was nauseous and vomited one time with intermittent nausea. No diarrhea but did have normal BM today. She has sweats but no fever or chills, no back pain. She has noted vaginal discharge, clear starting this afternoon. No changes with urination. She had tubal ligation in October of 2017. She tried tylenol or motrin this morning without relief. She has hx of ovarian cysts. States pain feels like similar cyst pain in the past. LMP was Oct 2016, has not had cycle since last and is currently . No pelvic cramping or period like cramps/pain. Left sided pain has been consistent since onset this morning with intermittent worsening/ stabbing pain. Onset: Sudden Duration: Hour(s): (9) Location: Reports: Abdomen, Pelvis Quality: Reports: Dull, Pressure, Stabbing Severity: Moderate Improves with: Reports: None Worsens with: Reports: None Associated Symptoms: Reports: No Other Symptoms Treatments COMMERCIAL CORRESPONDENT: Reports: Other (see below) (tylenol and motrin) Other Treatments COMMERCIAL CORRESPONDENT: motrin and tylenol Left Pelvic Pain Score (Numeric/FACES): 8 - Related Data Allergies Allergy/AdvReac Type Severity Reaction Status Date / Time latex Allergy Rash Verified 10/04/17 00:05 tramadol AdvReac Seizure Verified 10/04/17 00:05 Home Meds: Home Meds Ibuprofen [IJD: Ibuprofen] 600 mg PO Q6H PRN tablet 08/09/17 [Rx] levETIRAcetam [Keppra] 750 mg PO BID 10/04/17 [History] Montelukast [Singulair] 10 mg PO BEDTIME 05/04/18 [History] Sertraline [Zoloft] 100 mg PO DAILY 05/04/18 [History] Past Medical History - Past Health History Medical/Surgical History: Denies Medical/Surgical History Cardiovascular History: Reports: Hypertension Other Cardiovascular History: Experiences PIH/Toxemia with each including highly elevated blood pressures, according to pt. 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 Was on Zoloft x 6 mos and the situation resolved with counseling and infant no longer having colic, which was causing pt to doubt herself a lot. Endocrine/Metabolic History: Reports: Obesity/BMI 30+ - Infectious Disease History Infectious Disease History: Reports: Human Papilloma Virus (HPV) - Past Surgical History HEENT Surgical History: Reports: Adenoidectomy, Myringotomy w Tube(s), Tonsillectomy Other HEENT Surgeries/Procedures: adenoids GI Surgical History: Reports: Appendectomy, Cholecystectomy, Other (See Below) Female Surgical History: Reports: Section, LEEP Social & Family History - Family History Family Medical History: Noncontributory Oncologic: Reports: Skin - Tobacco Use Smoking Status *Q: Never Smoker - Caffeine Use Caffeine Use: Reports: Coffee, Tea - Recreational Drug Use Recreational Drug Use: No - Living Situation & Occupation Living situation: Reports: , with Family (4 kids) Occupation: Employed ED ROS GENERAL - Review of Systems Review Of Systems: See Below Constitutional: Reports: No Symptoms HEENT: Reports: No Symptoms Respiratory: Reports: No Symptoms Cardiovascular: Reports: No Symptoms GI/Abdominal: Reports: Abdominal Pain (left lower), Nausea. Denies: Constipation, Diarrhea, Vomiting : Reports: Discharge, Irregular Menses, Pain (see HPI). Denies: Dysuria, Flank Pain, Frequency, Hematuria, Incontinence Musculoskeletal: Reports: No Symptoms Neurological: Reports: No Symptoms ED EXAM, GI/ABD - Physical Exam Exam: See Below Exam Limited By: No Limitations General Appearance: Alert, WD/WN, No Apparent Distress Eyes: Bilateral: EOMI Ears: Normal External Exam, Hearing Grossly Normal Nose: Normal Inspection Throat/Mouth: Normal Inspection, Normal Gums, Normal Voice, No Airway Compromise Head: Atraumatic, Normocephalic Neck: Normal Inspection Respiratory/Chest: No Respiratory Distress, Lungs Clear, Normal Breath Sounds Cardiovascular: Normal Peripheral Pulses, Regular Rate, Rhythm, No Edema, No Murmur GI/Abdominal Exam: Normal Bowel Sounds, Soft, No Organomegaly, Tender (left lower quad with light and deep palpation), Other (round/obese) (Female) Exam: Normal External Exam, Normal Speculum Exam, Normal Bimanual Exam, Adnexal Tenderness, Vaginal Discharge (clear). No: Cervix Motion Tenderness, Uterine Tenderness, Vaginal Lesions Rectal (Female) Exam: Deferred Extremities: Normal Inspection, Normal Range of Motion, No Pedal Edema Neurological: Alert, Oriented, CN II-XII Intact Psychiatric: Normal Affect, Normal Mood Skin Exam: Warm, Dry, Intact Course - Vital Signs Last Recorded V/S: Last Vital Signs Temp 97.7 F 05/04/18 14:22 Pulse 73 05/04/18 14:22 Resp 20 05/04/18 14:22 BP 144/98 H 05/04/18 14:22 Pulse Ox 98 05/04/18 14:22 - Orders/Labs/Meds Meds: Medications Discontinued Medications Generic Name Dose Route Start Last Admin Trade Name Freq PRN Reason Stop Dose Admin Ketorolac Tromethamine 30 mg 05/04/18 16:35 05/04/18 16:40 Toradol IM 05/04/18 16:36 30 mg ONETIME ONE Administration Ondansetron HCl 4 mg 05/04/18 16:39 05/04/18 16:43 Zofran Odt PO 05/04/18 16:40 4 mg ONETIME ONE Administration - Radiology Interpretation Free Text/Narrative:: TVUS report received with final impression of 1. Small amount of fluid within the endometrial canal. 2. Pelvic ultrasound is otherwise unremarkable. - Re-Assessments/Exams Free Text/Narrative Re-Assessment/Exam: 05/04/18 16:49 TVUS completed, pain increased, ordered toradol IM and PO zofran. Departure - Departure Time of Disposition: 17:14 Disposition: Home, Self-Care 01 Condition: Good Clinical Impression: Abdominal pain - Discharge Information Instructions: Abdominal Pain, Adult, [id number], Pelvic Pain, Female, Easy-to -Read Referrals: Loan Patel MD [Primary Care Provider] - Forms: ED Department Discharge Additional Instructions: Wet mount is negative today for bacterial vaginosis, yeast or trichomonis Vaginal ultrasound is normal- no findings of ovarian cysts or other abnormalities Push fluids, motrin 600mg 3 times daily with food, consider stool softner once daily Follow up with Primary Care if not improved after a few days or if worsening. Can return to ER if needed for worsening pain, other ?'s or concerns.
[2018-05-04] MEDS ORDERED: Ketorolac 30 MG/ML SDV IM ONE (16:35)
[2018-05-04] MEDS ORDERED: Ondansetron 4 MG Tab.DIS PO ONE (16:39)
--- NOTE | 2018-05-04 16:58 | US ---
Pelvic ultrasound: Multiple real-time images were obtained transvaginally. Comparison: Prior pelvic ultrasound study of 06/27/16 is available. Uterus is anteverted. Small amount of fluid is seen within the endometrial canal. Endometrial thickness is normal at 1 cm. No myometrial abnormality is seen. Ovaries appear within normal limits. No free fluid is seen. Measurements: Uterus: Length 7.4 cm, AP height 4.1 cm transverse width is 5.2 cm Right ovary: 2.8 x 2.2 x 2.1 cm Left ovary: 2.7 x 2.6 x 2.5 cm Impression: 1. Small amount of fluid within the endometrial canal. 2. Pelvic ultrasound is otherwise unremarkable. Diagnostic code #2
== END 2018-05-04 17:26 | disposition home or self-care (01) ==
LOC: JD.ED 13:50
DX: R10.2 Pelvic and perineal pain (principal); R10.9 Unspecified abdominal pain; I10 Essential (primary) hypertension; Z91.040 Latex allergy status; Z88.5 Allergy status to narcotic agent; Z87.42 Personal history of other diseases of the female genital tract
CPT/HCPCS: 76830; 87210; 87808; 96372; 99284; A9270; J1885; 99283

== ENCOUNTER 2019-04-07 08:13 | Day surgery (SDC) | payer BC, MEDICAID ==
[~2019-04-07 08:13] MED LIST: Lidocaine 1% 4 ML ONE; Lidocaine 1%/Sod Bicarbonate in NS 8.4% 1 ML Syringe IDERM PRN; Midazolam 1 MG/ML 2 ML SDV ONE; Ondansetron 4 MG/2 ML SDV ONE; Propofol 200 MG/20 ML SDV ONE; Rocuronium 50 MG/5 ML Vial ONE; Sodium Chloride 0.9% 10 ML Syringe FLUSH PRN; fentaNYL 250 MCG/5 ML SDV ONE
[2019-04-07] MEDS ORDERED: Lactated Ringers 1,000 ML IV SCH (08:15)
[2019-04-07] MEDS ORDERED: Bupivacaine 0.5% 30 ML SDV ONE (08:29)
--- NOTE | 2019-04-07 08:40 | PCM.PREANE ---
Preanesthetic Assessment - Anesthesia/Transfusion/Family Hx Anesthesia History: Prior Anesthesia Without Reaction Family History of Anesthesia Reaction: No Transfusion History: No Prior Transfusion(s) Type of Transfusion Reactions: Reports: Unknown Intubation History: Unknown - Review of Systems General: No Symptoms Pulmonary: No Symptoms Cardiovascular: No Symptoms Gastrointestinal: No Symptoms Neurological: Numbness (hands fingers), Seizure (last one a" few months ago") Other: Reports: Depression - Physical Assessment NPO Status Date: 04/06/19 NPO Status Time: 00:00 Pulse: 85 O2 Sat by Pulse Oximetry: 96 Respiratory Rate: 16 Blood Pressure: 124/70 Temperature: 36.8 C Height: 1.57 m Weight: 97 kg ASA Class: 2 Mental Status: Alert & Oriented x3 Airway Class: Mallampati = 2 Dentition: Reports: [place](s) Thyro-Mental Finger Breadths: 2 Mouth Opening Finger Breadths: 2 ROM/Head Extension: Full Lungs: Clear to Auscultation, Normal Respiratory Effort Cardiovascular: Regular Rate, Regular Rhythm - Allergies Allergies/Adverse Reactions: Allergies Allergy/AdvReac Type Severity Reaction Status Date / Time latex Allergy Rash Verified 04/03/19 09:29 tramadol AdvReac Seizure Verified 04/03/19 09:29 - Blood Blood Available: Yes Product(s) Available: PRBC - Anesthesia Plan Pre-Op Medication Ordered: None - Acknowledgements Anesthesia Type Planned: General Anesthesia Pt an Appropriate Candidate for the Planned Anesthesia: Yes Alternatives and Risks of Anesthesia Discussed w Pt/Guardian: Yes Pt/Guardian Understands and Agrees with Anesthesia Plan: Yes PreAnesthesia Questionnaire - Past Health History Medical/Surgical History: Denies Medical/Surgical History HEENT History: Reports: Allergic Rhinitis, Other (See Below) Other HEENT History: sore throat, pharyngitis Cardiovascular History: Reports: High Cholesterol, Hypertension Other Cardiovascular History: Experiences PIH/Toxemia with each including highly elevated blood pressures, according to pt. 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 Was on Zoloft x 6 mos and the situation resolved with counseling and no longer having colic, which was causing pt to doubt herself a lot. Endocrine/Metabolic History: Reports: Obesity/BMI 30+ Hematologic History: Reports: Anemia Immunologic History: Reports: None Oncologic (Cancer) History: Reports: None Dermatologic History: Reports: None - Infectious Disease History Infectious Disease History: Reports: Human Papilloma Virus (HPV) - Past Surgical History Head Surgeries/Procedures: Reports: None HEENT Surgical History: Reports: Adenoidectomy, Myringotomy w Tube(s), Tonsillectomy Other HEENT Surgeries/Procedures: adenoids Respiratory Surgical History: Reports: None GI Surgical History: Reports: Appendectomy, Cholecystectomy, Colonoscopy Female Surgical History: Reports: Section, LEEP, Tubal Ligation Other Female Surgeries/Procedures: laproscopic adhesion removal Endocrine Surgical History: Reports: None Neurological Surgical History: Reports: None Other Musculoskeletal Surgeries/Procedures:: Occasional numbness in L hand due, according to pt, to possible injury related to muscles/spinal nerve pinching. Oncologic Surgical History: Reports: None Dermatological Surgical History: Reports: None - SUBSTANCE USE Smoking Status *Q: Former Smoker Tobacco Use Within Last Twelve Months: No Second Hand Smoke Exposure: No Days Per Week of Alcohol Use: 0 Number of Drinks Per Day: 0 Total Drinks Per Week: 0 Recreational Drug Use History: No - HOME MEDS Home Medications: Home Meds levETIRAcetam [Keppra] 750 mg PO BID 10/04/17 [History] Cholecalciferol (Vitamin D3) [Vitamin D3] 2,000 unit PO DAILY 04/03/19 [History] Fluticasone Propionate [Flonase] 1 spray NASBOTH BID 04/03/19 [History] Sertraline [Zoloft] 50 mg PO QPM 04/03/19 [History] Sertraline [Zoloft] 100 mg PO QAM 04/03/19 [History] - CURRENT (IN HOUSE) MEDS Current Meds: Current Medications Lactated Ringer's (Ringers, Lactated) 1,000 mls @ 125 mls/hr IV ASDIRECTED KAILEE Stop: 04/07/19 23:00 Lidocaine/Sodium Bicarbonate (Buffered Lidocaine 1% In Ns 8.4%) 0.25 ml IDERM ONETIME PRN PRN Reason: Prior to IV Start Stop: 04/07/19 16:00 Sodium Chloride (Saline Flush) 10 ml FLUSH ASDIRECTED PRN PRN Reason: Keep Vein Open Stop: 04/07/19 16:00 Discontinued Medications Fentanyl (Sublimaze) Confirm Administered Dose 250 mcg .ROUTE .STK-MED ONE Stop: 04/07/19 07:44 Lidocaine HCl (Xylocaine-Mpf 1%) Confirm Administered Dose 4 mls @ as directed .ROUTE .STK-MED ONE Stop: 04/07/19 07:44 Midazolam HCl (Versed 1 Mg/Ml) Confirm Administered Dose 2 mg .ROUTE .STK-MED ONE Stop: 04/07/19 07:43 Ondansetron HCl (Zofran) Confirm Administered Dose 4 mg .ROUTE .STK-MED ONE Stop: 04/07/19 07:43 Propofol (Diprivan 20 Ml) Confirm Administered Dose 200 mg .ROUTE .STK-MED ONE Stop: 04/07/19 07:43 Rocuronium [place] (Zemuron) Confirm Administered Dose 50 mg .ROUTE .STK-MED ONE Stop: 04/07/19 07:43
[2019-04-07] MEDS ORDERED: Scopolamine 1.5 MG Transdermal Patch TOP ONE (08:52)
[2019-04-07] MEDS ORDERED: ceFAZolin 1 GM Vial ONE (09:17)
[2019-04-07] MEDS ORDERED: Lactated Ringers 1,000 ML ONE ×3 (09:37→11:58)
[2019-04-07] MEDS ORDERED: HYDROmorphone 0.5 MG/0.5 ML Syringe ONE ×2 (09:42→09:43)
[2019-04-07] MEDS: Lidocaine 1% with EPINEPHrine 1:100,000 20 ML MDV ONE ×2 (10:05→10:28)
[2019-04-07] MEDS: Sodium Chloride 0.9% 50 ML SDV ONE ×2 (10:06→10:28)
[2019-04-07] MEDS ORDERED: Phenylephrine/Normal Saline 100 MCG/ML 10 ML Syringe ONE ×2 (10:18→11:11)
[2019-04-07] MEDS ORDERED: ePHEDrine/Normal Saline 25 MG/5 ML Syringe ONE (10:23)
[2019-04-07] MEDS ORDERED: Albuterol 6.7 GM Inhaler INH ONE (10:39)
[2019-04-07] MEDS ORDERED: Rocuronium 50 MG/5 ML Vial ONE ×2 (10:46)
[2019-04-07] MEDS ORDERED: fentaNYL 250 MCG/5 ML SDV ONE (11:26)
[2019-04-07] MEDS ORDERED: Ketorolac 30 MG/ML SDV ONE (11:40)
[2019-04-07] MEDS ORDERED: Neostigmine Methylsulfate 1 MG/ML 5 ML Syringe ONE (11:45)
[2019-04-07] MEDS ORDERED: Glycopyrrolate 0.2 MG/ML SDV ONE ×2 (11:45)
--- NOTE | 2019-04-07 12:01 | PCM.OPNOTE ---
- General Post-Op/Procedure Note Date of Surgery/Procedure: 04/07/19 Operative Procedure(s): Laparoscope assisted vaginal hysterectomy bilateral salpingectomy Pre Op Diagnosis: Menorrhagia, dysmenorrhea, pelvic pain Post-Op Diagnosis: Same Anesthesia Technique: General ET Tube Primary Surgeon: Obie Chang Secondary Surgeon: Lamont Castellon Anesthesia Provider: Luis Stinson Duct Cleaner: Rakesh Garcia (YVONNE) Reason Duct Cleaner Was Necessary: Decrease comorbidity and mortality assist in surgery, retraction, quality of care Role of Duct Cleaner: Decrease comorbidity and mortality assist in surgery, retraction, quality of care Fluid Replacement, Intraop: 2,800 Output, Urine Amount: 250 (no blood in urine) EBL in mLs: 300 Drain/Tube Comments:: None Complications: None Condition: Good Free Text/Narrative:: Patient was transported to the operating room and placed under general anesthesia with endotracheal intubation in low dorsal lithotomy position and prepared and draped in a sterile fashion. Patient had received Ancef preop and SCDs in place and functioning. Timeout performed. Patient prepared and draped in sterile fashion examination under anesthesia revealed anterior uterus no adnexal masses. Uterine manipulator was placed without difficulty sounding the uterus to 8.5 cm. (The uterine manipulator removed after laparoscopic procedure ) the patient had 5 mm incision made at the umbilicus after injecting 2 mL of Marcaine without epinephrine.Needle introduced and pneumoperitoneum obtained. Utilizing the bariatric trocar 5 mm introduced at the umbilicus and pelvic organs were visualized. Also dense adhesions of the omentum to the anterior abdominal wall these were not disturbed. The initial trocar site was later reinspected to make sure through different ports of there is no damage to internal organs with the initial trocar placement. None seen. Right and left flank 5 mm incisions were made injecting 2 mL of Marcaine without epinephrine in the planned incision site incision made and trochars introduced (self- retaining) the hysterectomy was begun with grasping the right fallopian tube and removing the distal portion of fallopian tube not removed at the time of tubal ligation. Proceeding medially and caudad crossclamping activated with the Enseal and incising proceeding towards the reflection of the bladder to lower uterine segment. This was carefully dissected away from the lower uterine segment of the uterus no evidence of damage to any surrounding organs including the bladder. Same procedure was carried out on the patient's left side grasping the remaining portion of fallopian tube crossclamping with Enseal and activating and incising. Proceeding cephalad and medial crossclamping of the pedicles and uterine vessels accomplished with the Enseal without difficulty. The lower uterine segment was traversed with the Enseal to meet with the portion obtained from the right side. The pneumoperitoneum was then reduced and the vaginal portion of the procedure was begun patient had a very small cervix which was high in the pelvis injecting 15 mL of 0.25% lidocaine with epinephrine and multiple confluent areas circumscribing incision was made posterior colpotomy was then performed and the posterior cul-de-sac was entered without difficulty utilizing the Enseal sealing device crossclamping uterosacral and cardinal ligaments on the left side and then the right side and proceeding cephalad crossclamping times twice more on each side and the uterus was removed without difficulty bleeding was controlled with the Enseal 1 small arteriolar bleeder with Enseal placed and activated and bleeding subsided. Posterior cuff was closed with a running locking suture of 0 Monocryl anterior cuff closed with 0 Monocryl running locking suture and then approximated anterior and posterior vaginal cuff with 0 Monocryl the surgery was completed vaginally. Sponge needle asthma and pack count correct 2 on the vaginal closure as well as the abdominal closure. Re-obtaining pneumoperitoneum inspection of the operative sites showed no active bleeding and pneumoperitoneum was reduced the trochars were removed and the subcuticular tissue closed with 3-0 Monocryl Dermabond applied. Patient transported to operating room in satisfactory condition no blood transfusions required. I did talk with her after surgery at 1145 and gave him a report on the patient 's condition. Images: Image 001 shows omental adhesions to the anterior abdominal wall. Image 002 shows the umbilical trocar with no damage to internal organs. Image 003 shows the right ovary and distal portion fallopian tube at 5:00 Image 004 shows the left ovary Image 005 shows the anterior cul-de-sac with no endometriosis seen Image 006 shows the posterior cul-de-sac after completion hysterectomy was no active bleeding. Image 007 shows a wider view of the posterior cul-de-sac with no bleeding Image 008 shows right flank trocar removal site with no active bleeding.
[2019-04-07] MEDS ORDERED: fentaNYL 100 MCG/2 ML SDV IVPUSH PRN (12:10)
--- NOTE | 2019-04-07 12:14 | PCM.POSTAN ---
POST ANESTHESIA ASSESSMENT - MENTAL STATUS Mental Status: Alert, Oriented - VITAL SIGNS Pulse Rate: 100 SaO2: 96 Resp Rate: 12 Blood Pressure: 147/72 Temperature: 36.6 C - RESPIRATORY Respiratory Status: Respiratory Rate WNL, Airway Patent, O2 Saturation Stable, Supplemental Oxygen - CARDIOVASCULAR CV Status: Pulse Rate WNL, Blood Pressure Stable - GASTROINTESTINAL GI Status: No Symptoms - PAIN Pain Score: 3 - POST OP HYDRATION Hydration Status: Adequate & Stable - OBSERVATIONS Free Text/Narrative:: no anesthesia complications noted
[2019-04-07] MEDS ORDERED: HYDROmorphone 0.5 MG/0.5 ML Syringe IVPUSH STA (12:15)
[2019-04-07] MEDS ORDERED: Acetaminophen/oxyCODONE 325-5 MG Tab PO PRN (12:34)
--- NOTE | 2019-04-07 13:08 | PCM48HPAN ---
Post Anesthesia Note - EVALUATION WITHIN 48HRS OF ANESTHETIC Vital Signs in Normal Range: Yes Patient Participated in Evaluation: Yes Respiratory Function Stable: Yes Airway Patent: Yes Cardiovascular Function Stable: Yes Hydration Status Stable: Yes Pain Control Satisfactory: Yes (pain meds provided) Nausea and Vomiting Control Satisfactory: Yes Mental Status Recovered: Yes - COMMENTS/OBSERVATIONS Free Text/Narrative:: no anesthesia complications noted
[2019-04-07 15:11] VITALS: BP 122/68
== END 2019-04-07 15:10 | disposition home or self-care (01) ==
LOC: JD.SDS 08:13
PROVIDERS: ATTEND Obstetrics & Gynecology
DX: N80.0 Endometriosis of uterus (principal); N73.6 Female pelvic peritoneal adhesions (postinfective); N83.8 Other noninflammatory disorders of ovary, fallopian tube and broad ligament; E28.2 Polycystic ovarian syndrome; G40.909 Epilepsy, unspecified, not intractable, without status epilepticus; G43.909 Migraine, unspecified, not intractable, without status migrainosus; F32.9 Major depressive disorder, single episode, unspecified; I10 Essential (primary) hypertension; D64.9 Anemia, unspecified; E66.01 Morbid (severe) obesity due to excess calories; Z68.39 Body mass index [BMI] 39.0-39.9, adult; Z87.891 Personal history of nicotine dependence; Z88.6 Allergy status to analgesic agent; Z91.040 Latex allergy status
CPT/HCPCS: 36415; 58552; 84703; 85025; 86850; 86900; 86901; A9270; J0131; J0690; J1170; J1885; J2001; J2250; J2370; J2405; J2704; J2710; J3010; J3490; J7050; J7120; 00944

== ENCOUNTER 2020-02-27 10:15 | Emergency (ER) | payer MEDICAID ==
[2020-02-27] MEDS ORDERED: levETIRAcetam 1,000 MG in Sodium Chloride 0.9% 100 ML IV ONE (10:31)
[2020-02-27 10:40] VITALS: BP 139/89; PULSE 104
[2020-02-27] MEDS ORDERED: LORazepam 2 MG/ML SDV IVPUSH ONE (10:40)
[2020-02-27] MEDS ORDERED: diphenhydrAMINE 50 MG/ML SDV IVPUSH ONE (10:52)
[2020-02-27] MEDS ORDERED: Ondansetron 4 MG/2 ML SDV IVPUSH ONE (10:52)
--- NOTE | 2020-02-27 11:26 | CT ---
Head CT Technique: Multiple axial sections through the brain were obtained. Intravenous contrast was not utilized. Comparison: Prior head CT study of 09/11/15. Findings: Ventricles along with basal cisterns and sulci over the convexities are within normal limits for the patient's age. No abnormal parenchymal densities are seen. No evidence of intracranial hemorrhage. No midline shift or mass effect is seen. Bone window settings were reviewed. No acute calvarial abnormality is seen. Visualized mastoid sinus as and paranasal sinuses show nothing acute. Impression: 1. No acute abnormality is identified on noncontrast head CT study. Diagnostic code #1 Study was dictated in MDT
--- NOTE | 2020-02-27 11:33 | EDM.PDOC ---
ED HPI GENERAL MEDICAL PROBLEM - General Chief Complaint: Neurological Problem Stated Complaint: SEIZURES Time Seen by Provider: 02/27/20 10:20 - History of Present Illness INITIAL COMMENTS - FREE TEXT/NARRATIVE: 34-year-old female presents the emergency room with what she thinks was a seizure. Patient has been on Keppra 750 mg twice daily for quite some time now. She has unusual seizures where she develops weakness and inability to move her left leg and arm as normal and sometimes she has speech problems associated with this. She is has these episodes 2-3 times a day over the last couple of days. The patient has associated headaches with these these headaches have nausea frequently. The patient thinks she had an EEG done at [place]. The patient does not have any postictal symptoms and no generalized tonic-clonic type activity. She believes the Keppra has been controlling these fairly well up until the last couple of days. - Related Data Allergies Allergy/AdvReac Type Severity Reaction Status Date / Time latex Allergy Rash Verified 04/03/19 09:29 tramadol AdvReac Seizure Verified 04/03/19 09:29 Home Meds: Home Meds levETIRAcetam [Keppra] 750 mg PO BID 10/04/17 [History] Cholecalciferol (Vitamin D3) [Vitamin D3] 2,000 unit PO DAILY 04/03/19 [History] Fluticasone Propionate [Flonase] 1 spray NASBOTH BID 04/03/19 [History] Sertraline [Zoloft] 50 mg PO QPM 04/03/19 [History] Sertraline [Zoloft] 100 mg PO QAM 04/03/19 [History] Ibuprofen [Motrin] 200 mg PO Q6H PRN #50 tab 04/07/19 [Rx] Ketorolac [Toradol] 10 mg PO Q6H PRN #20 tab 05/22/19 [Rx] Penicillin V Potassium 500 mg PO Q8HR #21 tab 05/22/19 [Rx] Past Medical History - Past Health History Medical/Surgical History: Denies Medical/Surgical History HEENT History: Reports: Allergic Rhinitis, Other (See Below) Other HEENT History: sore throat, pharyngitis Cardiovascular History: Reports: High Cholesterol, Hypertension Other Cardiovascular History: Experiences PIH/Toxemia with each including highly elevated blood pressures, according to pt. Respiratory History: Reports: None Gastrointestinal History: Reports: Hemorrhoids, Other (See Below) Other Gastrointestinal History: nausea, vomiting, change in bowel habits, bulimia Genitourinary History: Reports: Renal Calculus Other Genitourinary History: abnormal PAP, HPV, STRIP MACHINE TENDER History: Reports: Polycystic Ovaries, Other STRIP MACHINE TENDER History: LEEP procedure; culposcopy; HPV removal of lesions, ovarian cysts Musculoskeletal History: Reports: Back Pain, Chronic, Other (See Below) Other Musculoskeletal History: foot and heel pain, muscle spasms, R plantar fascitis Neurological History: Reports: Headaches, Chronic, Migraines, Seizure Psychiatric History: Reports: Anxiety, Depression Other Psychiatric History: Pt states had pp depression following the of her second child. Was on Zoloft x 6 mos and the situation resolved with counseling and infant no longer having colic, which was causing pt to doubt herself a lot. Endocrine/Metabolic History: Reports: Obesity/BMI 30+ Hematologic History: Reports: Anemia Immunologic History: Reports: None Oncologic (Cancer) History: Reports: None Dermatologic History: Reports: None - Infectious Disease History Infectious Disease History: Reports: Human Papilloma Virus (HPV) - Past Surgical History Head Surgeries/Procedures: Reports: None HEENT Surgical History: Reports: Adenoidectomy, Myringotomy w Tube(s), Tonsillectomy Other HEENT Surgeries/Procedures: adenoids Respiratory Surgical History: Reports: None GI Surgical History: Reports: Appendectomy, Cholecystectomy, Colonoscopy Female Surgical History: Reports: Section, Hysterectomy, LEEP, Tubal Ligation Other Female Surgeries/Procedures: laproscopic adhesion removal Endocrine Surgical History: Reports: None Neurological Surgical History: Reports: None Other Musculoskeletal Surgeries/Procedures:: Occasional numbness in L hand due, according to pt, to possible injury related to muscles/spinal nerve pinching. Oncologic Surgical History: Reports: None Dermatological Surgical History: Reports: None Social & Family History - Family History Family Medical History: Noncontributory Oncologic: Reports: Skin - Tobacco Use Smoking Status *Q: Former Smoker Used Tobacco, but Quit: Yes Month/Year Tobacco Last Used: 1 year ago - Caffeine Use Caffeine Use: Reports: Coffee - Recreational Drug Use Recreational Drug Use: No - Living Situation & Occupation Living situation: Reports: , with Family (4 kids) Occupation: Employed ED ROS GENERAL - Review of Systems Review Of Systems: See Below Constitutional: Denies: Fever, Chills HEENT: Reports: No Symptoms Respiratory: Reports: No Symptoms Cardiovascular: Reports: No Symptoms Endocrine: Reports: No Symptoms GI/Abdominal: Reports: Nausea. Denies: Abdominal Pain, Vomiting : Reports: No Symptoms Musculoskeletal: Reports: Other (See history of present illness) Neurological: Reports: Headache, Other (See history of present illness) Hematologic/Lymphatic: Reports: No Symptoms Immunologic: Reports: No Symptoms ED EXAM, NEURO - Physical Exam Exam: See Below Exam Limited By: No Limitations General Appearance: Alert, No Apparent Distress Eye Exam: Bilateral Eye: EOMI, Normal Inspection, PERRL Ears: Normal External Exam, Normal Canal, Hearing Grossly Normal, Normal TMs Nose: Normal Inspection, Normal Mucosa, No Blood Throat/Mouth: Normal Inspection, Normal Lips, Normal Teeth Head Exam: Atraumatic, Normocephalic Neck: Normal Inspection, Supple, Non-Tender, Full Range of Motion Respiratory/Chest: No Respiratory Distress, Lungs Clear, Normal Breath Sounds Cardiovascular: Regular Rate, Rhythm, No Edema, No Murmur GI/Abdominal: Normal Bowel Sounds, Soft, Non-Tender Neurological: Other (Nerves II through XII grossly intact the patient appears to have some weakness in her left arm she cannot fully extend her elbow she cannot fully extend her wrist and she cannot fully extend her digits however she can hold up above her head along with her right arm and there is no ulnar drift or associated other weaknesses appreciated. Bilingual Sales Representative strength is diminished on the left side. After this resolved she was normal with this left arm. She was also noted with ambulation to be dragging her left foot slightly this did improve.) EKG INTERPRETATION EKG Date: 02/27/20 Rhythm: NSR [place]: Normal P-Wave: Present QRS: Other (Voltage in the precordial leads probably due to body habitus) ST-T: Normal QT: Normal EKG Interpretation Comments: Otherwise normal EKG slightly decreased voltage in the precordial leads Course - Vital Signs Last Recorded V/S: Last Vital Signs Temp 36.7 C 02/27/20 10:33 Pulse 104 H 02/27/20 10:33 Resp 16 02/27/20 10:33 BP 139/89 02/27/20 10:33 Pulse Ox 98 02/27/20 10:33 - Orders/Labs/Meds Orders: Active Orders 24 hr Category Date Time Status EKG Documentation Completion [RC] STAT Care 02/27/20 10:38 Active HCG QUALITATIVE,URINE [URCHEM] Stat Lab 02/27/20 10:38 Ordered UA RFX GLENN AND CULT IF INDIC [URIN] Stat Lab 02/27/20 10:38 Ordered UA W/GLENN RFLX IF INDICATED [URIN] Stat Lab 02/27/20 10:38 Ordered Labs: Laboratory Tests 02/27/20 02/27/20 02/27/20 Range/Units 10:29 10:29 10:29 WBC 7.06 (3.98-10.04) K/mm3 RBC 4.39 (3.98-5.22) M/mm3 Hgb 13.1 (11.2-15.7) gm/dl Hct 40.0 (34.1-44.9) % MCV 91.1 D (79.4-94.8) fl MCH 29.8 (25.6-32.2) pg MCHC 32.8 (32.2-35.5) g/dl RDW Std Deviation 46.9 H (36.4-46.3) fL Plt Count 223 D (182-369) K/mm3 MPV 8.3 L (9.4-12.3) fl Neut % (Auto) 52.5 (34.0-71.1) % Lymph % (Auto) 35.6 (19.3-51.7) % [place] % (Auto) 8.5 (4.7-12.5) % Eos % (Auto) 2.5 (0.7-5.8) Baso % (Auto) 0.3 (0.1-1.2) % Neut # (Auto) 3.71 (1.56-6.13) K/mm3 Lymph # (Auto) 2.51 (1.18-3.74) K/mm3 [place] # (Auto) 0.60 H (0.24-0.36) K/mm3 Eos # (Auto) 0.18 (0.04-0.36) K/mm3 Baso # (Auto) 0.02 (0.01-0.08) K/mm3 PT 10.3 (9.7-12.0) SECONDS INR 0.94 APTT 25 (22-31) SECONDS Sodium 138 (136-145) mEq/L Potassium 4.1 (3.5-5.1) mEq/L Chloride 104 (98-107) mEq/L Carbon Dioxide 22 (21-32) mEq/L Anion Gap 16.1 H (5-15) BUN 13 (7-18) mg/dL Creatinine 0.9 (0.55-1.02) mg/dL Est Cr Clr Drug Dosing TNP Estimated GFR (MDRD) > 60 (>60) mL/min BUN/Creatinine Ratio 14.4 (14-18) Glucose 96 (74-106) mg/dL Calcium 8.6 (8.5-10.1) mg/dL Total Bilirubin 0.3 (0.2-1.0) mg/dL AST 15 (15-37) U/L ALT 28 (14-59) U/L Alkaline Phosphatase 69 (46-116) U/L Total Protein 7.1 (6.4-8.2) g/dl Albumin 3.6 (3.4-5.0) g/dl Globulin 3.5 gm/dL Albumin/Globulin Ratio 1.0 (1-2) Meds: Medications Discontinued Medications Generic Name Dose Route Start Last Admin Trade Name Freq PRN Reason Stop Dose Admin Diphenhydramine HCl 50 mg 02/27/20 10:52 02/27/20 11:21 Benadryl IVPUSH 02/27/20 10:53 50 mg ONETIME ONE Administration Levetiracetam 1,000 mg/ Sodium 110 mls @ 400 mls/hr 02/27/20 10:31 02/27/20 10:50 Chloride IV 02/27/20 10:45 400 mls/hr ONETIME ONE Administration Lorazepam 1 mg 02/27/20 10:40 Ativan IVPUSH 02/27/20 10:41 ONETIME ONE Ondansetron HCl 4 mg 02/27/20 10:52 02/27/20 11:21 Zofran IVPUSH 02/27/20 10:53 4 mg ONETIME ONE Administration - Re-Assessments/Exams Free Text/Narrative Re-Assessment/Exam: 02/27/20 12:[address] that was unremarkable laboratory evaluation unrevealing patient was given Zofran and Benadryl headache improved weakness on the left side resolved. Case was discussed with Dr. Lozoya, neurologist, at [facility]. The patient will follow up with her regular provider she has an appointment on Saturday I recommend she gets brain MRI with and without contrast and get scheduled for an EEG. I think the patient is having atypical migraines not having seizures. However this needs to be worked up better I did check with [facility] in [place] they have an EMG from 2015 no EEG no neurology consult [facility] only has a neurology consult from August of this last year where the patient did not keep the appointment. Departure - Departure Time of Disposition: 12:37 Disposition: Home, Self-Care 01 Clinical Impression: Atypical migraine - Discharge Information Referrals: Bev Combs PA-C [Primary Care Provider] - Forms: ED Department Discharge Additional Instructions: Return to the emergency room with any questions problems or worsening symptoms. Continue your medications as before. Follow-up with your primary provider on Saturday as scheduled you need to be scheduled and set up for a EEG and a brain MRI with and without contrast. After these are done follow-up with neurology at [facility], this will need to be scheduled after the above testing is obtained. Today your case was discussed with Dr. Lozoya neurologist at [facility]. Sepsis Event Note - Evaluation Sepsis Screening Result: No Definite Risk - Focused Exam Vital Signs: Vital Signs Temp Pulse Resp BP Pulse Ox 02/27/20 10:33 36.7 C 104 H 16 139/89 98 Date Exam was Performed: 02/27/20 Time Exam was Performed: 12:33 - My Orders Last 24 Hours: My Active Orders 02/27/20 10:38 EKG Documentation Completion [RC] STAT HCG QUALITATIVE,URINE [URCHEM] Stat UA RFX GLENN AND CULT IF INDIC [URIN] Stat UA W/GLENN RFLX IF INDICATED [URIN] Stat - Assessment/Plan Last 24 Hours: My Active Orders 02/27/20 10:38 EKG Documentation Completion [RC] STAT HCG QUALITATIVE,URINE [URCHEM] Stat UA RFX GLENN AND CULT IF INDIC [URIN] Stat UA W/GLENN RFLX IF INDICATED [URIN] Stat
== END 2020-02-27 12:55 | disposition home or self-care (01) ==
LOC: JD.ED 10:15
DX: G43.909 Migraine, unspecified, not intractable, without status migrainosus (principal); I10 Essential (primary) hypertension; F41.9 Anxiety disorder, unspecified; F32.9 Major depressive disorder, single episode, unspecified; E66.9 Obesity, unspecified; Z68.41 Body mass index [BMI] 40.0-44.9, adult; Z87.891 Personal history of nicotine dependence; Z91.040 Latex allergy status; Z88.5 Allergy status to narcotic agent; Z79.899 Other long term (current) drug therapy
CPT/HCPCS: 36415; 70450; 80053; 85025; 85610; 85730; 93005; 96365; 96375; 99284; J1200; J1953; J2405; J7050; 93010

== ENCOUNTER 2020-03-04 23:19 | Emergency (ER) | payer MEDICAID ==
[2020-03-04 23:31] VITALS: BP 118/68; PULSE 101
[2020-03-04] MEDS ORDERED: Ondansetron 4 MG/2 ML SDV IVPUSH ONE (23:40)
[2020-03-04] MEDS ORDERED: LORazepam 2 MG/ML SDV IVPUSH ONE (23:40)
[2020-03-04] MEDS ORDERED: diphenhydrAMINE 50 MG/ML SDV IVPUSH ONE (23:42)
[2020-03-04] MEDS ORDERED: Sodium Chloride 0.9% 1,000 ML IV SCH (23:45)
--- NOTE | 2020-03-04 23:45 | EDM.PDOC ---
ED HPI GENERAL MEDICAL PROBLEM - General Chief Complaint: Neurological Problem Stated Complaint: [facility] Time Seen by Provider: 03/04/20 23:28 Source of Information: Reports: Patient History Limitations: Reports: No Limitations - History of Present Illness INITIAL COMMENTS - FREE TEXT/NARRATIVE: Is a 34-year-old female. She has a history of grand mall seizures for the last 5 years that has been well controlled on Keppra. However over the last 12 days she been having migraines that have been persistent and constant. During this time she complains of vertigo where her eyes get mixed up and she has a hard time keeping her balance. 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 This evening because of her headache she laid down and apparently had a grand mall seizure. When the ambulance arrived she was in a postictal state but by the time she arrived to the ER she was coherent. She complains of a throbbing headache all over her head. She denies any history of cluster migraines. She was seen here on the for a seizure and she received a CAT scan of the head as well as a CBC and CMP that were all within normal limits. She is scheduled for an MRI and an EEG on Saturday and to see her neurologist thereafter. There is been no recent change in her Keppra dosage. She denies any illnesses fever or chills. She denies any significant stiffness of her neck. During the seizure this evening she had some incontinence of urine, she complains of some light sensitivity and some mild nausea. Headache Pain Score (Numeric/FACES): 10 - Related Data Allergies Allergy/AdvReac Type Severity Reaction Status Date / Time latex Allergy Rash Verified 03/04/20 23:23 tramadol AdvReac Seizure Verified 03/04/20 23:23 Home Meds: Home Meds levETIRAcetam [Keppra] 750 mg PO BID 10/04/17 [History] Cholecalciferol (Vitamin D3) [Vitamin D3] 2,000 unit PO DAILY 04/03/19 [History] Acetaminophen/Butalbital/Caff [Fioricet 325-50-40 MG] 1 each PO Q6H PRN #12 tab 03/05/20 [Rx] Past Medical History - Past Health History Medical/Surgical History: Denies Medical/Surgical History HEENT History: Reports: Allergic Rhinitis, Other (See Below) Other HEENT History: sore throat, pharyngitis Cardiovascular History: Reports: High Cholesterol, Hypertension Other Cardiovascular History: Experiences PIH/Toxemia with each including highly elevated blood pressures, according to pt. 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 Was on Zoloft x 6 mos and the situation resolved with counseling and no longer having colic, which was causing pt to doubt herself a lot. Endocrine/Metabolic History: Reports: Obesity/BMI 30+ Hematologic History: Reports: Anemia Immunologic History: Reports: None Oncologic (Cancer) History: Reports: None Dermatologic History: Reports: None - Infectious Disease History Infectious Disease History: Reports: Chicken Pox, Human Papilloma Virus (HPV) - Past Surgical History Head Surgeries/Procedures: Reports: None HEENT Surgical History: Reports: Adenoidectomy, Myringotomy w Tube(s), Tonsillectomy Other HEENT Surgeries/Procedures: adenoids Respiratory Surgical History: Reports: None GI Surgical History: Reports: Appendectomy, Cholecystectomy, Colonoscopy Female Surgical History: Reports: Section, Hysterectomy, LEEP, Tubal Ligation Other Female Surgeries/Procedures: laproscopic adhesion removal Endocrine Surgical History: Reports: None Neurological Surgical History: Reports: None Other Musculoskeletal Surgeries/Procedures:: Occasional numbness in L hand due, according to pt, to possible injury related to muscles/spinal nerve pinching. Oncologic Surgical History: Reports: None Dermatological Surgical History: Reports: None Social & Family History - Family History Family Medical History: Noncontributory Oncologic: Reports: Skin - Tobacco Use Smoking Status *Q: Former Smoker Used Tobacco, but Quit: No - Caffeine Use Caffeine Use: Reports: Coffee Caffeine Use Comment: rarely - Recreational Drug Use Recreational Drug Use: Yes Drug Use in Last 12 Months: No Recreational Drug Type: Reports: Marijuana/Hashish - Living Situation & Occupation Living situation: Reports: , with Family (4 kids) Occupation: Employed ED ROS GENERAL - Review of Systems Review Of Systems: See Below Constitutional: Denies: Fever, Chills HEENT: Denies: Ear Pain, Rhinitis, Sinus Problem, Throat Swelling Respiratory: Denies: Shortness of Breath, Cough Cardiovascular: Denies: Chest Pain Endocrine: Reports: No Symptoms GI/Abdominal: Reports: Nausea. Denies: Abdominal Pain, Diarrhea : Reports: No Symptoms Musculoskeletal: Denies: Neck Pain Skin: Reports: No Symptoms Neurological: Reports: Headache, Seizure, Other (Vertigo) Psychiatric: Reports: No Symptoms Hematologic/Lymphatic: Reports: No Symptoms - Physical Exam Exam: See Below Exam Limited By: No Limitations General Appearance: Alert, WD/WN, No Apparent Distress Eye Exam: Bilateral Eye: Normal Inspection Ears: Normal External Exam, Normal Canal, Normal TMs Nose: Normal Inspection Throat/Mouth: Normal Inspection, Normal Lips, Normal Voice, No Airway Compromise Head Exam: Normocephalic Neck: Supple, Non-Tender, Other (No nuchal rigidity noted) Respiratory/Chest: No Respiratory Distress, Lungs Clear Cardiovascular: Regular Rate, Rhythm, No Murmur GI/Abdominal: Soft, Non-Tender Neuro Exam (Abbreviated): Alert, Oriented, CN II-XII Intact, Other (He complains of some left-sided paralysis at times but it does not appear to be present at this time) Back Exam: Full Range of Motion Extremities: Normal Inspection, Normal Range of Motion Psychiatric: Normal Affect, Normal Mood Skin Exam: Warm, Dry Course - Vital Signs Last Recorded V/S: Last Vital Signs Temp 99.0 F 03/04/20 23:26 Pulse 101 H 03/04/20 23:26 Resp 16 03/04/20 23:26 BP 118/68 03/04/20 23:26 Pulse Ox 96 03/04/20 23:26 - Orders/Labs/Meds Orders: Active Orders 24 hr Category Date Time Status Sodium Chloride 0.9% [Normal Saline] 1,000 ml Med 03/04/20 23:45 Active IV ASDIRECTED Medication Orders Sodium Chloride (Normal Saline) 1,000 mls @ 1,000 mls/hr IV ASDIRECTED KAILEE Last Admin: 03/05/20 00:00 Dose: 1,000 mls/hr Meds: Medications Generic Name Dose Route Start Last Admin Trade Name Charlie PRN Reason Stop Dose Admin Sodium Chloride 1,000 mls @ 1,000 mls/hr 03/04/20 23:45 03/05/20 00:00 Normal Saline IV 1,000 mls/hr ASDIRECTED KAILEE Administration Discontinued Medications Generic Name Dose Route Start Last Admin Trade Name Rodríguezq PRN Reason Stop Dose Admin Diphenhydramine HCl 25 mg 03/04/20 23:42 03/05/20 00:04 Benadryl IVPUSH 03/04/20 23:43 25 mg ONETIME ONE Administration Lorazepam 0.5 mg 03/04/20 23:40 03/05/20 00:05 Ativan IVPUSH 03/04/20 23:41 0.5 mg ONETIME ONE Administration Ondansetron HCl 4 mg 03/04/20 23:40 03/05/20 00:07 Zofran IVPUSH 03/04/20 23:41 4 mg ONETIME ONE Administration - Re-Assessments/Exams Free Text/Narrative Re-Assessment/Exam: 03/05/20 01:29 Patient got a liter of fluids and some medications that helped her sleep is awake and she still has that throbbing type headache even though it is dulled a little bit. The left side of her body is sore but she denies any weakness. I will put her on some Fioricet in hopes that that might at least take the edge off her headache and then she is going to get the MRI and the EEG on Saturday and follow-up with her neurologist. Departure - Departure Time of Disposition: : Disposition: Home, Self-Care 01 Condition: Fair Clinical Impression: Seizure Headache Qualifiers: Headache type: unspecified Headache chronicity pattern: unspecified pattern Intractability: not intractable Qualified Code(s): R51 - Headache - Discharge Information *PRESCRIPTION DRUG MONITORING PROGRAM REVIEWED*: Not Applicable *COPY OF PRESCRIPTION DRUG MONITORING REPORT IN PATIENT CRISTINA: Not Applicable Prescriptions: Acetaminophen/Butalbital/Caff [Fioricet 325-50-40 MG] 1 each PO Q6H PRN #12 tab PRN Reason: Headache Instructions: Seizure, Adult, [id number] Referrals: Bev Combs PA-C [Primary Care Provider] - Forms: ED Department Discharge Additional Instructions: Get the Fioricet tomorrow and try it to see if it takes the edge off your headaches, the medicine will probably make you sleepy, get the MRI and EEG on Saturday as scheduled and then follow-up with your neurologist, return to the ER if needed Sepsis Event Note - Evaluation Sepsis Screening Result: No Definite Risk - Focused Exam Vital Signs: Vital Signs Temp Pulse Resp BP Pulse Ox 03/04/20 23:26 99.0 F 101 H 16 118/68 96 Date Exam was Performed: 03/05/20 Time Exam was Performed: 01:28 - My Orders Last 24 Hours: My Active Orders 03/04/20 23:45 Sodium Chloride 0.9% [Normal Saline] 1,000 ml IV ASDIRECTED - Assessment/Plan Last 24 Hours: My Active Orders 03/04/20 23:45 Sodium Chloride 0.9% [Normal Saline] 1,000 ml IV ASDIRECTED
== END 2020-03-05 01:50 | disposition home or self-care (01) ==
LOC: JD.ED 23:19 → SUPCPDRO 23:19 → JD.ED 03-05 01:50
DX: R56.9 Unspecified convulsions (principal); R51 Headache; Z79.899 Other long term (current) drug therapy; I10 Essential (primary) hypertension; E66.9 Obesity, unspecified; Z87.891 Personal history of nicotine dependence
CPT/HCPCS: 96361; 96374; 96375; 99284; J1200; J2060; J2405; J7030